=== PATIENT | female | born 1980 | race African-American/Black ===

== ENCOUNTER 2020-06-29 18:20 | Emergency (ER) | payer SELFPAY ==
[~2020-06-29] VITALS: Ht 162.6 cm; Wt 98.0 kg
[2020-06-29] MEDS ORDERED: AMLODIPINE 10MG TABLET PO ONE (19:00)
[2020-06-29] MEDS ORDERED: HYDRALAZINE 20MG/ML VIAL IV ONE (19:00)
[2020-06-29 19:57] LABS: BASOPHILS % 0.8 % (0.0-2.0); CHLORIDE 102 mEq/L (98-107); EOSINOPHILS % 4.1 % (0.0-5.0); HEMATOCRIT. 34.7 % (36.0-48.0); HEMOGLOBIN. 11.5 g/dL (12.0-16.0); LYMPHOCYTES % 20.1 % (20.0-50.0); MEAN CORPUSCULAR HEMOGLOBIN 30.3 pg (28.0-32.0); MEAN CORPUSCULAR VOLUME 91.1 fL (81.0-99.0); MEAN PLATELET VOLUME 11.3 fl (7.4-10.4); MONOCYTES % 13.9 % (2.0-8.0); NEUTROPHILS % 61.1 % (40.0-76.0); PLATELET 185 x1000/uL (130-400); RED BLOOD CELL COUNT 3.81 mill/uL (4.2-5.4)
[2020-06-29 20:02] LABS: PROTHROMBIN TIME 10.4 sec (9.6-11.0)
[2020-06-29 20:06] LABS: CLARITY URINE CLEAR (CLEAR); COLOR URINE YELLOW (YELLOW); KETONES URINE NEGATIVE (NEGATIVE); LEUKOCYTE ESTERASE URINE 1+ (NEGATIVE); NITRITE URINE NEGATIVE (NEGATIVE); OCCULT BLOOD URINE NEGATIVE (NEGATIVE); PH URINE 7.5 (4.5-8.0); PROTEIN URINE 1+ (NEGATIVE); SPECIFIC GRAVITY URINE 1.023 (1.005-1.030)
[2020-06-29] MEDS ORDERED: ONDANSETRON HCL 4MG/2ML INJ IV ONE (22:00)
[2020-06-29] MEDS ORDERED: CEFTRIAXONE 1 G PREMIX 50 ML IV ONE (22:00)
[2020-06-29] MEDS ORDERED: KETOROLAC 30MG/ML VIAL IV ONE (22:00)
[2020-06-29] MEDS ORDERED: HYDRALAZINE HCL 25MG TABLET PO ONE (22:00)
[2020-06-29] MEDS ORDERED: IOHEXOL-300 100 ML BOTTLE ONE (22:23)
[2020-06-29 22:42] VITALS: BP 178/112
== END 2020-06-29 22:44 | disposition home or self-care (01) ==
LOC: ER 18:20
DX: N39.0 Urinary tract infection, site not specified (principal); I10 Essential (primary) hypertension; J45.909 Unspecified asthma, uncomplicated; Z88.0 Allergy status to penicillin; Z88.1 Allergy status to other antibiotic agents; Z88.2 Allergy status to sulfonamides; Z88.5 Allergy status to narcotic agent
CPT/HCPCS: 36415; 71045; 74177; 80053; 81003; 81025; 83690; 83880; 84484; 85025; 85610; 93005; 96365; 96375; 99285; J0360; J0696; J1885; J2405; Q9967

== ENCOUNTER 2020-10-03 00:53 | Emergency (ER) | payer BC ==
[~2020-10-03] VITALS: Ht 162.6 cm; Wt 96.0 kg
[2020-10-03] MEDS ORDERED: AMLO10TA80 MT (01:10)
[2020-10-03] MEDS ORDERED: CLAR10 PO (01:11)
[2020-10-03] MEDS ORDERED: ACETAMINOPHEN 325MG TABLET PO ONE (01:45)
[2020-10-03 02:06] LABS: HEMATOCRIT. 34.9 % (36.0-48.0); HEMOGLOBIN. 11.4 g/dL (12.0-16.0); MEAN CORPUSCULAR HEMOGLOBIN 29.1 pg (28.0-32.0); MEAN CORPUSCULAR VOLUME 89.1 fL (81.0-99.0); MEAN PLATELET VOLUME 10.5 fl (7.4-10.4); PLATELET 158 x1000/uL (130-400); RED BLOOD CELL COUNT 3.91 mill/uL (4.2-5.4); RED CELL DISTRIBUTION WIDTH 13.9 % (11.6-14.6)
[2020-10-03 02:20] LABS: CHLORIDE 107 mEq/L (98-107)
[2020-10-03 02:35] LABS: HCG SCREEN NEGATIVE
[2020-10-03 02:44] LABS: CLARITY URINE CLEAR (CLEAR); COLOR URINE YELLOW (YELLOW); KETONES URINE NEGATIVE (NEGATIVE); LEUKOCYTE ESTERASE URINE TRACE (NEGATIVE); NITRITE URINE NEGATIVE (NEGATIVE); OCCULT BLOOD URINE 2+ (NEGATIVE); PH URINE 6.5 (4.5-8.0); PROTEIN URINE NEGATIVE (NEGATIVE)
[2020-10-03 03:26] LABS: PLATELET ESTIMATE NORMAL
[2020-10-03] MEDS ORDERED: KETOROLAC 15MG/ML VIAL IV ONE (03:45)
[2020-10-03 03:50] VITALS: BP 216/134
[2020-10-03] MEDS ORDERED: CIPDEX EACH EAR (04:22)
[2020-10-03] MEDS ORDERED: METR500T MT (04:22)
[2020-10-03] MEDS ORDERED: CIPR500S4 PO (04:22)
== END 2020-10-03 05:15 | disposition home or self-care (01) ==
LOC: ER 00:58
DX: K51.30 Ulcerative (chronic) rectosigmoiditis without complications (principal); D25.9 Leiomyoma of uterus, unspecified; D64.9 Anemia, unspecified; J45.909 Unspecified asthma, uncomplicated; H60.93 Unspecified otitis externa, bilateral; I10 Essential (primary) hypertension; Z79.899 Other long term (current) drug therapy; Z88.0 Allergy status to penicillin; Z88.5 Allergy status to narcotic agent; Z88.2 Allergy status to sulfonamides
CPT/HCPCS: 36415; 74176; 80053; 81003; 84703; 85025; 93005; 96374; 99285; J1885

== ENCOUNTER 2020-12-18 19:51 | Emergency (ER) | payer BC ==
[~2020-12-18] VITALS: Ht 162.6 cm; Wt 100.0 kg
[~2020-12-18 19:51] MED LIST: AMLO10TA80 MT; CIPDEX EACH EAR; CIPR500S4 PO; CLAR10 PO; METR500T MT; NAPR-681 MT; NORG1TAB75 MT
[2020-12-18] MEDS ORDERED: MAGNESIUM/ALUMINUM HYDROXIDE/SIMETHICONE 30ML UDC PO STA (20:15)
[2020-12-18] MEDS ORDERED: ACETAMINOPHEN 325MG TABLET PO ONE (20:15)
[2020-12-18 20:34] LABS: BASOPHILS % 1.2 % (0.0-2.0); EOSINOPHILS % 2.5 % (0.0-5.0); HEMATOCRIT. 36.1 % (36.0-48.0); HEMOGLOBIN. 12.2 g/dL (12.0-16.0); LYMPHOCYTES % 12.3 % (20.0-50.0); MEAN CORPUSCULAR HEMOGLOBIN 30.1 pg (28.0-32.0); MEAN CORPUSCULAR VOLUME 89.2 fL (81.0-99.0); MEAN PLATELET VOLUME 10.5 fl (7.4-10.4); MONOCYTES % 14.7 % (2.0-8.0); NEUTROPHILS % 69.3 % (40.0-76.0); PLATELET 171 x1000/uL (130-400); RED BLOOD CELL COUNT 4.05 mill/uL (4.2-5.4); RED CELL DISTRIBUTION WIDTH 13.7 % (11.6-14.6)
[2020-12-18 20:39] LABS: CLARITY URINE CLEAR (CLEAR); COLOR URINE YELLOW (YELLOW); KETONES URINE NEGATIVE (NEGATIVE); LEUKOCYTE ESTERASE URINE TRACE (NEGATIVE); NITRITE URINE NEGATIVE (NEGATIVE); OCCULT BLOOD URINE TRACE (NEGATIVE); PROTEIN URINE NEGATIVE (NEGATIVE); SPECIFIC GRAVITY URINE 1.019 (1.005-1.030); UROBILINOGEN URINE 0.2 E.U./dL (0.2-1.0)
[2020-12-18 20:42] LABS: CHLORIDE 104 mEq/L (98-107)
[2020-12-18 20:45] LABS: PROTHROMBIN TIME 11.2 sec (9.6-11.0)
[2020-12-18 21:01] LABS: HCG SCREEN NEGATIVE
[2020-12-18] MEDS ORDERED: FAMO-135 PO (21:48)
[2020-12-18] MEDS ORDERED: AMLO10TA80 PO (21:48)
[2020-12-18] MEDS ORDERED: AMLODIPINE 10MG TABLET PO ONE (22:00)
[2020-12-18 23:45] VITALS: BP 154/67
== END 2020-12-18 23:45 | disposition home or self-care (01) ==
LOC: ER 20:22
DX: R10.13 Epigastric pain (principal); I10 Essential (primary) hypertension
CPT/HCPCS: 36415; 74176; 76830; 76856; 80053; 81003; 81025; 84703; 85025; 93005; 99285

== ENCOUNTER 2020-12-27 22:10 | Emergency (ER) | payer BC ==
[~2020-12-27] VITALS: Ht 162.6 cm; Wt 99.0 kg
[~2020-12-27 22:10] MED LIST changes: +AMLO10TA80 PO; +FAMO-135 PO
[2020-12-27] MEDS ORDERED: AMLODIPINE 10MG TABLET PO ONE (23:15)
[2020-12-28 00:18] VITALS: BP 174/91
== END 2020-12-28 00:20 | disposition home or self-care (01) ==
LOC: ER 22:31
DX: R10.12 Left upper quadrant pain (principal); I10 Essential (primary) hypertension; Y08.89XA Assault by other specified means, initial encounter; Y93.89 Activity, other specified; Y92.89 Other specified places as the place of occurrence of the external cause; Y99.8 Other external cause status; Z79.899 Other long term (current) drug therapy; Z88.0 Allergy status to penicillin; Z88.5 Allergy status to narcotic agent
CPT/HCPCS: 76700; 99284

== ENCOUNTER 2021-07-21 14:00 | Emergency (ER) | payer BC ==
[~2021-07-21] VITALS: Ht 162.6 cm; Wt 100.0 kg
[2021-07-21 14:14] VITALS: BP 160/98
[2021-07-21] MEDS ORDERED: KETOROLAC 60MG/2ML VIAL IM ONE (14:30)
[2021-07-21] MEDS ORDERED: IBUP-2029 MT (15:02)
== END 2021-07-21 15:16 | disposition home or self-care (01) ==
LOC: ER 14:41
DX: S63.613A Unspecified sprain of left middle finger, initial encounter (principal); I10 Essential (primary) hypertension; Z79.899 Other long term (current) drug therapy; Z88.0 Allergy status to penicillin; Z88.5 Allergy status to narcotic agent; Z88.6 Allergy status to analgesic agent; Z88.8 Allergy status to other drugs, medicaments and biological substances; X58.XXXA Exposure to other specified factors, initial encounter; Y93.89 Activity, other specified; Y92.89 Other specified places as the place of occurrence of the external cause; Y99.8 Other external cause status
CPT/HCPCS: 29130; 73140; 81025; 99283; J1885

== ENCOUNTER 2021-08-26 22:27 | Emergency (ER) | payer BC ==
[~2021-08-26] VITALS: Ht 162.6 cm; Wt 98.0 kg
[~2021-08-26 22:27] MED LIST changes: +IBUP-2029 MT
[2021-08-26] MEDS ORDERED: TETANUS, DIPHTHERIA, PERTUSSIS VAC/PF 0.5ML (>10YR OLD) IM ONE (23:00)
[2021-08-26] MEDS ORDERED: BACITRACIN ZINC OINT UDPKT TOP ONE (23:00)
[2021-08-26] MEDS ORDERED: IBUPROFEN 600MG TABLET PO ONE (23:00)
[2021-08-26] MEDS ORDERED: BO1 TP (23:03)
[2021-08-26] MEDS ORDERED: NAPR-681 PO (23:03)
[2021-08-26 23:05] VITALS: BP 166/102
== END 2021-08-26 23:10 | disposition home or self-care (01) ==
LOC: ER 22:27
DX: T30.0 Burn of unspecified body region, unspecified degree (principal); T79.9XXA Unspecified early complication of trauma, initial encounter; I10 Essential (primary) hypertension; J45.909 Unspecified asthma, uncomplicated; Z98.890 Other specified postprocedural states; Z88.0 Allergy status to penicillin; Z88.1 Allergy status to other antibiotic agents; Z88.5 Allergy status to narcotic agent; Z88.2 Allergy status to sulfonamides; Z79.899 Other long term (current) drug therapy; X08.8XXA Exposure to other specified smoke, fire and flames, initial encounter; Y93.89 Activity, other specified; Y92.89 Other specified places as the place of occurrence of the external cause; Y99.8 Other external cause status
CPT/HCPCS: 16020; 90471; 90715; 99283

== ENCOUNTER 2021-08-28 10:14 | Emergency (ER) | payer BC ==
[~2021-08-28] VITALS: Ht 162.6 cm; Wt 118.0 kg
[~2021-08-28 10:14] MED LIST changes: +BO1 TP; +NAPR-681 PO
[2021-08-28] MEDS ORDERED: AMLODIPINE 10MG TABLET PO ONE (10:30)
[2021-08-28] MEDS ORDERED: BACITRACIN ZINC OINT UDPKT TOP ONE (10:30)
[2021-08-28 11:43] LABS: CHLORIDE 103 mEq/L (98-107)
[2021-08-28 12:02] VITALS: BP 171/113
[2021-08-28] MEDS ORDERED: AMLO10TA80 MT (12:21)
[2021-08-28 12:43] LABS: CLARITY URINE CLEAR (CLEAR); COLOR URINE YELLOW (YELLOW); KETONES URINE NEGATIVE (NEGATIVE); LEUKOCYTE ESTERASE URINE NEGATIVE (NEGATIVE); NITRITE URINE NEGATIVE (NEGATIVE); OCCULT BLOOD URINE NEGATIVE (NEGATIVE); PH URINE 5.5 (4.5-8.0); PROTEIN URINE 1+ (NEGATIVE); SPECIFIC GRAVITY URINE 1.021 (1.005-1.030); UROBILINOGEN URINE 0.2 E.U./dL (0.2-1.0)
== END 2021-08-28 12:42 | disposition home or self-care (01) ==
LOC: ER 10:14
DX: T23.221A Burn of second degree of single right finger (nail) except thumb, initial encounter (principal); T31.0 Burns involving less than 10% of body surface; X19.XXXA Contact with other heat and hot substances, initial encounter; Y93.89 Activity, other specified; Y92.89 Other specified places as the place of occurrence of the external cause; Y99.8 Other external cause status; J45.909 Unspecified asthma, uncomplicated; I10 Essential (primary) hypertension; Z79.899 Other long term (current) drug therapy; Z88.0 Allergy status to penicillin
CPT/HCPCS: 16020; 36415; 80048; 81003; 99283

== ENCOUNTER 2021-08-31 13:13 | Emergency (ER) | payer BC ==
[~2021-08-31] VITALS: Ht 162.6 cm; Wt 98.0 kg
[2021-08-31] MEDS ORDERED: AMLODIPINE 10MG TABLET PO ONE (13:30)
[2021-08-31 13:58] LABS: HEMATOCRIT. 35.4 % (36.0-48.0); HEMOGLOBIN. 11.8 g/dL (12.0-16.0); MEAN CORPUSCULAR HEMOGLOBIN 29.9 pg (28.0-32.0); MEAN CORPUSCULAR VOLUME 89.9 fL (81.0-99.0); MEAN PLATELET VOLUME 11.2 fl (7.4-10.4); PLATELET 202 x1000/uL (130-400); RED BLOOD CELL COUNT 3.93 mill/uL (4.2-5.4); RED CELL DISTRIBUTION WIDTH 13.8 % (11.6-14.6)
[2021-08-31 14:06] LABS: CHLORIDE 102 mEq/L (98-107)
[2021-08-31 14:15] LABS: CLARITY URINE CLEAR (CLEAR); COLOR URINE YELLOW (YELLOW); KETONES URINE NEGATIVE (NEGATIVE); LEUKOCYTE ESTERASE URINE NEGATIVE (NEGATIVE); NITRITE URINE NEGATIVE (NEGATIVE); OCCULT BLOOD URINE TRACE (NEGATIVE); PROTEIN URINE 2+ (NEGATIVE); SPECIFIC GRAVITY URINE 1.021 (1.005-1.030); UROBILINOGEN URINE 0.2 E.U./dL (0.2-1.0)
[2021-08-31] MEDS ORDERED: KETOROLAC 30MG/ML VIAL IV ONE (14:45)
[2021-08-31] MEDS ORDERED: T3 PO (15:04)
[2021-08-31 15:38] LABS: PLATELET ESTIMATE NORMAL
[2021-08-31 16:15] VITALS: BP 109/116
== END 2021-08-31 16:35 | disposition home or self-care (01) ==
LOC: ER 13:13
DX: R30.0 Dysuria (principal); R10.9 Unspecified abdominal pain; M54.89 Other dorsalgia; I10 Essential (primary) hypertension; D64.9 Anemia, unspecified; K76.0 Fatty (change of) liver, not elsewhere classified; J45.909 Unspecified asthma, uncomplicated; Z88.0 Allergy status to penicillin; Z88.1 Allergy status to other antibiotic agents; Z88.5 Allergy status to narcotic agent; Z88.2 Allergy status to sulfonamides
CPT/HCPCS: 36415; 76700; 80053; 81003; 81025; 85025; 96374; 99284; J1885; Z7610

== ENCOUNTER → 2021-11-21 | Outpatient (CLI) | payer BC ==
[~2021-11-21] MED LIST changes: +T3 PO
[2021-11-21 13:47] LABS: CLARITY URINE CLEAR (CLEAR); COLOR URINE YELLOW (YELLOW); KETONES URINE TRACE (NEGATIVE); LEUKOCYTE ESTERASE URINE TRACE (NEGATIVE); NITRITE URINE NEGATIVE (NEGATIVE); OCCULT BLOOD URINE NEGATIVE (NEGATIVE); PH URINE 6.5 (4.5-8.0); PROTEIN URINE 2+ (NEGATIVE); SPECIFIC GRAVITY URINE 1.025 (1.005-1.030)
[2021-11-21 14:29] LABS: CHLORIDE 105 mEq/L (98-107)
[2021-11-21 14:34] LABS: TOTAL IRON BINDING CAPACITY 296 ug/dL (250-450)
[2021-11-21 14:38] LABS: T4 FREE 1.12 ng/dL (0.76-1.46)
[2021-11-23 08:08] LABS: CANCER ANTIGEN 125 35.4 U/mL (0.0-38.1); VITAMIN D 25-OH 11.5 ng/mL (30.0-100.0)
== END | disposition home or self-care (01) ==
LOC: LAB 12:37
PROVIDERS: ATTEND Family Medicine Adult Medicine
DX: I10 Essential (primary) hypertension (principal); E83.51 Hypocalcemia; R39.15 Urgency of urination; R53.83 Other fatigue; R10.30 Lower abdominal pain, unspecified; R35.0 Frequency of micturition; R07.89 Other chest pain; R10.84 Generalized abdominal pain; R80.9 Proteinuria, unspecified
CPT/HCPCS: 36415; 80048; 81003; 82306; 83540; 83550; 84439; 84443; 86304

== ENCOUNTER → 2021-11-23 | Outpatient (CLI) | payer BC | END | disposition home or self-care (01) | LOC: US 10:53 | PROVIDERS: ATTEND Family Medicine Adult Medicine | DX: D25.9 Leiomyoma of uterus, unspecified (principal); N83.201 Unspecified ovarian cyst, right side; N83.202 Unspecified ovarian cyst, left side; R93.89 Abnormal findings on diagnostic imaging of other specified body structures | CPT/HCPCS: 76830; 76856 ==

== ENCOUNTER → 2021-12-08 | Outpatient (CLI) | payer BC ==
[2021-12-08 15:35] LABS: BASOPHILS % 0.6 % (0.0-2.0); EOSINOPHILS % 2.6 % (0.0-5.0); HEMATOCRIT. 32.6 % (36.0-48.0); LYMPHOCYTES % 18.8 % (20.0-50.0); MEAN PLATELET VOLUME 9.6 fl (7.4-10.4); MONOCYTES % 13.7 % (2.0-8.0); NEUTROPHILS % 64.3 % (40.0-76.0); PLATELET 231 x1000/uL (130-400); RED BLOOD CELL COUNT 3.67 mill/uL (4.2-5.4); RED CELL DISTRIBUTION WIDTH 14.6 % (11.6-14.6)
[2021-12-08 15:43] LABS: CHLORIDE 103 mEq/L (98-107)
[2021-12-08 15:58] LABS: HDL CHOLESTEROL 40 mg/dL (40-59); LDL CHOLESTEROL 98 mg/dL (5-100); T4 FREE 1.16 ng/dL (0.76-1.46)
== END | disposition home or self-care (01) ==
LOC: LAB 14:29
PROVIDERS: ATTEND Specialist
DX: E78.2 Mixed hyperlipidemia (principal); E11.9 Type 2 diabetes mellitus without complications; E55.9 Vitamin D deficiency, unspecified; D64.9 Anemia, unspecified
CPT/HCPCS: 36415; 80053; 80061; 82306; 83036; 84439; 84443; 84481; 85025

== ENCOUNTER → 2022-01-10 | Outpatient (CLI) | payer BC ==
[~2022-01-10] MED LIST changes: +NITROGLYCERIN SPRAY/4.9GM CAN TL NR
== END | disposition home or self-care (01) ==
LOC: CT 10:34
PROVIDERS: ATTEND Specialist
DX: R07.9 Chest pain, unspecified (principal); I25.10 Atherosclerotic heart disease of native coronary artery without angina pectoris
CPT/HCPCS: 75571; Z7610

== ENCOUNTER → 2022-02-01 | Day surgery (SDC) | payer BC ==
[~2022-02-01] VITALS: Ht 162.6 cm; Wt 98.0 kg
[~2022-02-01] MED LIST changes: +ALBU18HF2 IH; +ASCO500C18 PO; +CHOL500051 PO; +CLINDAMYCIN 900 MG PREMIX 50 ML IV ONE; +CLON0.2T PO; +DEXAMETHASONE 4MG/ML 1ML VIAL ONE; +FENTANYL CITRATE/PF 50MCG/ML 2ML VIAL ONE; +LABETALOL 5MG/ML SYR 20 MG/4 ML SYRINGE IV PRN; +LACTATED RINGERS 1,000 ML IV SCH; +MEPERIDINE HCL/PF 25MG/ML CPJ IV PRN; +MIDAZOLAM HCL 2 MG/2 ML VIAL ONE; -NITROGLYCERIN SPRAY/4.9GM CAN TL NR; +ONDANSETRON HCL 4MG/2ML INJ IV PRN; +ONDANSETRON HCL 4MG/2ML INJ ONE; +PROPOFOL 200MG/20ML VIAL IV ONE; +VASOPRESSIN 20 UNIT/ML 1ML ONE
[2022-02-01 10:16] LABS: BASOPHILS % 0.6 % (0.0-2.0); EOSINOPHILS % 2.9 % (0.0-5.0); HEMATOCRIT. 32.1 % (36.0-48.0); HEMOGLOBIN. 10.6 g/dL (12.0-16.0); LYMPHOCYTES % 12.4 % (20.0-50.0); MEAN CORPUSCULAR HEMOGLOBIN 29.1 pg (28.0-32.0); MEAN CORPUSCULAR VOLUME 88.3 fL (81.0-99.0); MEAN PLATELET VOLUME 9.1 fl (7.4-10.4); MONOCYTES % 10.9 % (2.0-8.0); NEUTROPHILS % 73.2 % (40.0-76.0); PLATELET 282 x1000/uL (130-400); RED BLOOD CELL COUNT 3.64 mill/uL (4.2-5.4); RED CELL DISTRIBUTION WIDTH 14.7 % (11.6-14.6)
[2022-02-01 10:29] LABS: CHLORIDE 102 mEq/L (98-107)
[2022-02-01 10:37] LABS: PARTIAL THROMBOPLASTIN TIME 29.6 sec (23.4-31.0); PROTHROMBIN TIME 10.7 sec (9.6-11.0)
[2022-02-01 10:48] LABS: UCG SCREEN NEGATIVE
[2022-02-01] MEDS: HYDROMORPHONE HCL/PF 2MG/ML CPJ IV PRN ×2 (13:08→13:19)
[2022-02-01 13:19] VITALS: BP 134/84
== END | disposition home or self-care (01) ==
LOC: OR 09:47
PROVIDERS: ATTEND Obstetrics & Gynecology Obstetrics
DX: D25.0 Submucous leiomyoma of uterus (principal); N84.0 Polyp of corpus uteri; N92.1 Excessive and frequent menstruation with irregular cycle; I10 Essential (primary) hypertension; J45.909 Unspecified asthma, uncomplicated; D64.9 Anemia, unspecified; Z79.899 Other long term (current) drug therapy; Z98.890 Other specified postprocedural states; Z20.822 Contact with and (suspected) exposure to COVID-19
CPT/HCPCS: 36415; 58561; 80048; 81025; 85025; 85610; 85730; 87426; 88305; 93005; C9803; J1100; J1170; J2250; J2405; J2704; J3010; J3490; J7120

== ENCOUNTER 2022-02-24 15:39 | Emergency (ER) | payer BC ==
[~2022-02-24] VITALS: Ht 162.6 cm; Wt 91.0 kg
[~2022-02-24 15:39] MED LIST changes: -AMLO10TA80 PO; -BO1 TP; -CIPDEX EACH EAR; -CIPR500S4 PO; -CLINDAMYCIN 900 MG PREMIX 50 ML IV ONE; -DEXAMETHASONE 4MG/ML 1ML VIAL ONE; -FENTANYL CITRATE/PF 50MCG/ML 2ML VIAL ONE; -LABETALOL 5MG/ML SYR 20 MG/4 ML SYRINGE IV PRN; -LACTATED RINGERS 1,000 ML IV SCH; -MEPERIDINE HCL/PF 25MG/ML CPJ IV PRN; -METR500T MT; -MIDAZOLAM HCL 2 MG/2 ML VIAL ONE; -NAPR-681 MT; -NAPR-681 PO; -NORG1TAB75 MT; -ONDANSETRON HCL 4MG/2ML INJ IV PRN; -ONDANSETRON HCL 4MG/2ML INJ ONE; -PROPOFOL 200MG/20ML VIAL IV ONE; -T3 PO; -VASOPRESSIN 20 UNIT/ML 1ML ONE
[2022-02-24] MEDS ORDERED: ONDANSETRON HCL 4MG/2ML INJ IV STA (16:15)
[2022-02-24] MEDS ORDERED: MORPHINE SULFATE 4 MG/ML CPJ (NOT FOR IM USE) IV STA (16:15)
[2022-02-24] MEDS ORDERED: SODIUM CHLORIDE 0.9% 1,000 ML IV ONE (16:15)
[2022-02-24 16:41] LABS: BASOPHILS % 0.4 % (0.0-2.0); EOSINOPHILS % 5.6 % (0.0-5.0); HEMATOCRIT. 34.1 % (36.0-48.0); HEMOGLOBIN. 11.1 g/dL (12.0-16.0); LYMPHOCYTES % 25.2 % (20.0-50.0); MEAN CORPUSCULAR HEMOGLOBIN 28.8 pg (28.0-32.0); MEAN CORPUSCULAR VOLUME 88.9 fL (81.0-99.0); MEAN PLATELET VOLUME 9.6 fl (7.4-10.4); MONOCYTES % 14.1 % (2.0-8.0); NEUTROPHILS % 54.7 % (40.0-76.0); PLATELET 316 x1000/uL (130-400); RED BLOOD CELL COUNT 3.83 mill/uL (4.2-5.4); RED CELL DISTRIBUTION WIDTH 14.8 % (11.6-14.6)
[2022-02-24 16:43] LABS: CLARITY URINE CLEAR (CLEAR); COLOR URINE YELLOW (YELLOW); KETONES URINE NEGATIVE (NEGATIVE); LEUKOCYTE ESTERASE URINE 3+ (NEGATIVE); NITRITE URINE NEGATIVE (NEGATIVE); OCCULT BLOOD URINE 3+ (NEGATIVE); PROTEIN URINE TRACE (NEGATIVE); SPECIFIC GRAVITY URINE 1.014 (1.005-1.030); UROBILINOGEN URINE 0.2 E.U./dL (0.2-1.0)
[2022-02-24 16:47] LABS: PROTHROMBIN TIME 10.9 sec (9.6-11.0)
[2022-02-24 16:56] LABS: HCG SCREEN NEGATIVE
[2022-02-24 17:00] LABS: CHLORIDE 101 mEq/L (98-107)
[2022-02-24] MEDS ORDERED: HYDROCODONE/ACETAMINOPHEN 5/325MG TABLET PO ONE (19:15)
[2022-02-24] MEDS ORDERED: T3 PO (20:52)
[2022-02-24] MEDS ORDERED: IBUP-2029 MT (20:52)
[2022-02-24 21:18] VITALS: BP 149/85
== END 2022-02-24 21:34 | disposition home or self-care (01) ==
LOC: ER 15:39
DX: M54.50 Low back pain, unspecified (principal); J45.909 Unspecified asthma, uncomplicated; I10 Essential (primary) hypertension; Z88.0 Allergy status to penicillin; Z91.010 Allergy to peanuts; Z88.2 Allergy status to sulfonamides; Z88.8 Allergy status to other drugs, medicaments and biological substances; Z91.018 Allergy to other foods; Z98.890 Other specified postprocedural states; Z79.899 Other long term (current) drug therapy
CPT/HCPCS: 36415; 74176; 80053; 81003; 83690; 84703; 85025; 85610; 96361; 96374; 96375; 99284; J2270; J2405; J7030

== ENCOUNTER → 2022-03-17 | Outpatient (CLI) | payer BC ==
[~2022-03-17] MED LIST changes: +T3 PO
== END | disposition home or self-care (01) ==
LOC: MRI 10:32
PROVIDERS: ATTEND Obstetrics & Gynecology Obstetrics
DX: M41.86 Other forms of scoliosis, lumbar region (principal); M51.17 Intervertebral disc disorders with radiculopathy, lumbosacral region; R10.2 Pelvic and perineal pain; M79.659 Pain in unspecified thigh
CPT/HCPCS: 72148

== ENCOUNTER 2022-05-05 22:11 | Emergency (ER) | payer BC ==
[~2022-05-05] VITALS: Ht 162.6 cm; Wt 98.0 kg
[2022-05-05] MEDS ORDERED: MORPHINE SULFATE 4 MG/ML CPJ (NOT FOR IM USE) IV NR (23:55)
[2022-05-05] MEDS ORDERED: ONDANSETRON HCL 4MG/2ML INJ IV NR (23:55)
[2022-05-06] MEDS ORDERED: SODIUM CHLORIDE 0.9% 1,000 ML IV NR
[2022-05-06 00:35] LABS: BASOPHILS % 0.6 % (0.0-2.0); EOSINOPHILS % 3.3 % (0.0-5.0); HEMATOCRIT. 34.7 % (36.0-48.0); HEMOGLOBIN. 11.8 g/dL (12.0-16.0); LYMPHOCYTES % 14.3 % (20.0-50.0); MEAN CORPUSCULAR HEMOGLOBIN 30.6 pg (28.0-32.0); MEAN CORPUSCULAR VOLUME 89.7 fL (81.0-99.0); MEAN PLATELET VOLUME 10.2 fl (7.4-10.4); MONOCYTES % 10.7 % (2.0-8.0); NEUTROPHILS % 71.1 % (40.0-76.0); PLATELET 218 x1000/uL (130-400); RED BLOOD CELL COUNT 3.86 mill/uL (4.2-5.4); RED CELL DISTRIBUTION WIDTH 14.6 % (11.6-14.6)
[2022-05-06 00:42] LABS: CHLORIDE 101 mEq/L (98-107)
[2022-05-06 00:46] LABS: HCG SCREEN NEGATIVE
[2022-05-06 01:10] LABS: CLARITY URINE CLOUDY (CLEAR); COLOR URINE YELLOW (YELLOW); KETONES URINE TRACE (NEGATIVE); LEUKOCYTE ESTERASE URINE 1+ (NEGATIVE); NITRITE URINE NEGATIVE (NEGATIVE); OCCULT BLOOD URINE 3+ (NEGATIVE); PROTEIN URINE 2+ (NEGATIVE); SPECIFIC GRAVITY URINE 1.026 (1.005-1.030)
[2022-05-06 05:30] VITALS: BP 156/95
[2022-05-06] MEDS ORDERED: LEVO750T46 MT (05:53)
[2022-05-06] MEDS ORDERED: HYDR-4001 MT (05:54)
== END 2022-05-06 06:20 | disposition home or self-care (01) ==
LOC: ER 22:11
DX: D25.9 Leiomyoma of uterus, unspecified (principal); N83.202 Unspecified ovarian cyst, left side; I10 Essential (primary) hypertension; N95.1 Menopausal and female climacteric states; Z88.0 Allergy status to penicillin; Z88.2 Allergy status to sulfonamides; Z91.09 Other allergy status, other than to drugs and biological substances; Z88.1 Allergy status to other antibiotic agents; Z91.018 Allergy to other foods
CPT/HCPCS: 36415; 76830; 76856; 80053; 81003; 81025; 83605; 83690; 84703; 85025; 86850; 86900; 86901; 96361; 96374; 96375; 99285; J2270; J2405

== ENCOUNTER 2022-06-23 23:30 | Inpatient (IN) | payer BC ==
[~2022-06-23] VITALS: Ht 162.6 cm; Wt 89.8 kg
[~2022-06-23 23:30] MED LIST changes: -CLON0.2T PO; +HYDR-4001 MT
[2022-06-24] VITALS: BP 106/60
[2022-06-24] MEDS: HYDROMORPHONE HCL/PF 2MG/ML CPJ IV PRN ×4 (02:06→21:22)
[2022-06-24 04:40] VITALS: BP 106/60
[2022-06-24 08:00] VITALS: BP 110/62
[2022-06-24] MEDS ORDERED: NALOXONE HCL 0.4MG/ML VIAL IV PRN (09:30)
[2022-06-24] MEDS ORDERED: DIATR MEGLU/DIATRIZOATE SOLN 120ML ONE (09:38)
[2022-06-24 12:00] VITALS: BP 101/57
[2022-06-24] MEDS: FUROSEMIDE 40MG/4ML VIAL IVP SCH (15:19)
[2022-06-24 16:00] VITALS: BP 114/66
[2022-06-24 18:22] LABS: HEMOGLOBIN. 7.7 g/dL (12.0-16.0); MEAN PLATELET VOLUME 8.9 fl (7.4-10.4)
[2022-06-24 18:24] LABS: HEMATOCRIT. 23.7 % (36.0-48.0); MEAN CORPUSCULAR VOLUME 86.4 fL (81.0-99.0); PLATELET 325 x1000/uL (130-400); RED BLOOD CELL COUNT 2.74 mill/uL (4.2-5.4); RED CELL DISTRIBUTION WIDTH 17.8 % (11.6-14.6)
[2022-06-24 18:28] LABS: CHLORIDE 97 mEq/L (98-107)
[2022-06-24 20:00] VITALS: BP 122/72
[2022-06-24] MEDS: DIPHENHYDRAMINE 50MG/ML VIAL IV SCH (22:11)
[2022-06-24 23:11] LABS: NUCLEATED RED BLOOD CELLS 1 /100 WBC; PLATELET ESTIMATE NORMAL
[2022-06-25] VITALS: BP 102/56
[2022-06-25] MEDS: HYDROMORPHONE HCL/PF 2MG/ML CPJ IV PRN ×4 (03:28→21:48)
[2022-06-25 04:00] VITALS: BP 110/58
[2022-06-25] MEDS: DIPHENHYDRAMINE 50MG/ML VIAL IV SCH ×3 (06:10→22:25)
[2022-06-25 07:47] LABS: HEMATOCRIT. 22.4 % (36.0-48.0); HEMOGLOBIN. 7.2 g/dL (12.0-16.0); MEAN CORPUSCULAR HEMOGLOBIN 28.4 pg (28.0-32.0); MEAN CORPUSCULAR VOLUME 87.8 fL (81.0-99.0); MEAN PLATELET VOLUME 8.5 fl (7.4-10.4); PLATELET 295 x1000/uL (130-400); RED BLOOD CELL COUNT 2.55 mill/uL (4.2-5.4); RED CELL DISTRIBUTION WIDTH 17.7 % (11.6-14.6)
[2022-06-25 08:00] VITALS: BP 112/66
[2022-06-25 08:46] LABS: CHLORIDE 95 mEq/L (98-107)
[2022-06-25] MEDS: FUROSEMIDE 40MG/4ML VIAL IVP SCH (09:32)
[2022-06-25 12:00] VITALS: BP 116/74
[2022-06-25 12:39] LABS: PLATELET ESTIMATE NORMAL
[2022-06-25 16:00] VITALS: BP 122/72
[2022-06-25 20:00] VITALS: BP 117/71
[2022-06-26] MEDS: HYDROMORPHONE HCL/PF 2MG/ML CPJ IV PRN ×4 (03:46→22:28)
[2022-06-26] MEDS: DIPHENHYDRAMINE 50MG/ML VIAL IV SCH ×3 (06:19→23:03)
[2022-06-26 08:00] VITALS: BP 105/54
[2022-06-26] MEDS: FUROSEMIDE 40MG/4ML VIAL IVP SCH (09:50)
[2022-06-26 12:29] VITALS: BP 113/69
[2022-06-26 20:00] VITALS: BP 132/71
[2022-06-27] VITALS: BP 107/56
[2022-06-27] MEDS: HYDROMORPHONE HCL/PF 2MG/ML CPJ IV PRN ×4 (04:32→22:43)
[2022-06-27] MEDS: DIPHENHYDRAMINE 50MG/ML VIAL IV SCH ×3 (05:54→21:07)
[2022-06-27 07:00] LABS: HEMATOCRIT. 22.2 % (36.0-48.0); HEMOGLOBIN. 7.4 g/dL (12.0-16.0); MEAN CORPUSCULAR HEMOGLOBIN 28.8 pg (28.0-32.0); MEAN CORPUSCULAR VOLUME 86.7 fL (81.0-99.0); MEAN PLATELET VOLUME 8.5 fl (7.4-10.4); PLATELET 288 x1000/uL (130-400); RED BLOOD CELL COUNT 2.56 mill/uL (4.2-5.4); RED CELL DISTRIBUTION WIDTH 17.4 % (11.6-14.6)
[2022-06-27 07:55] VITALS: BP 117/71
[2022-06-27 08:45] LABS: CHLORIDE 97 mEq/L (98-107)
[2022-06-27] MEDS ORDERED: POTASSIUM CHLORIDE 20MEQ TABLET SR PO NR (09:00)
[2022-06-27 09:04] LABS: PHOSPHORUS 3.6 mg/dL (2.5-4.9)
[2022-06-27] MEDS ORDERED: ONDANSETRON HCL 4MG/2ML INJ IV PRN (09:15)
[2022-06-27] MEDS: FUROSEMIDE 40MG/4ML VIAL IVP SCH ×2 (09:59→16:40)
[2022-06-27 11:32] VITALS: BP 103/62
[2022-06-27] MEDS ORDERED: MAGNESIUM 2 G PREMIX 50 ML IV NR (12:30)
[2022-06-27 16:05] VITALS: BP 112/63
[2022-06-27 20:00] VITALS: BP 106/56
[2022-06-27] MEDS ORDERED: TEMAZEPAM 15MG CAPSULE PO PRN (21:00)
[2022-06-27 21:14] LABS: PLATELET ESTIMATE NORMAL
[2022-06-28 04:00] VITALS: BP 105/57
[2022-06-28] MEDS: HYDROMORPHONE HCL/PF 2MG/ML CPJ IV PRN ×4 (04:58→23:05)
[2022-06-28] MEDS: FUROSEMIDE 40MG/4ML VIAL IVP SCH ×2 (06:48→17:06)
[2022-06-28] MEDS: DIPHENHYDRAMINE 50MG/ML VIAL IV SCH ×3 (06:48→21:57)
[2022-06-28 08:00] VITALS: BP 111/61
[2022-06-28 08:24] LABS: HEMATOCRIT. 23.1 % (36.0-48.0); HEMOGLOBIN. 7.7 g/dL (12.0-16.0); MEAN CORPUSCULAR HEMOGLOBIN 29.5 pg (28.0-32.0); MEAN CORPUSCULAR VOLUME 88.3 fL (81.0-99.0); MEAN PLATELET VOLUME 8.7 fl (7.4-10.4); PLATELET 283 x1000/uL (130-400); RED BLOOD CELL COUNT 2.61 mill/uL (4.2-5.4); RED CELL DISTRIBUTION WIDTH 17.4 % (11.6-14.6)
[2022-06-28 08:43] LABS: CHLORIDE 95 mEq/L (98-107)
[2022-06-28] MEDS ORDERED: POTASSIUM CHLORIDE 20MEQ TABLET SR PO NR ×2 (09:00→12:00)
[2022-06-28] MEDS ORDERED: MAGNESIUM 4 G PREMIX 100 ML IV NR (11:00)
[2022-06-28 12:00] VITALS: BP 116/71
[2022-06-28 16:00] VITALS: BP 117/63
[2022-06-28 20:00] VITALS: BP 104/57
[2022-06-28 21:25] LABS: PLATELET ESTIMATE NORMAL
[2022-06-29] VITALS (7 sets, daily range): BP systolic 100–124; BP diastolic 54–70
[2022-06-29] MEDS: HYDROMORPHONE HCL/PF 2MG/ML CPJ IV PRN ×3 (05:00→17:41)
[2022-06-29] MEDS: DIPHENHYDRAMINE 50MG/ML VIAL IV SCH ×3 (06:10→22:09)
[2022-06-29] MEDS: FUROSEMIDE 40MG/4ML VIAL IVP SCH ×2 (06:17→17:41)
[2022-06-29 06:29] LABS: BASOPHILS % 0.8 % (0.0-2.0); EOSINOPHILS % 2.8 % (0.0-5.0); HEMATOCRIT. 22.3 % (36.0-48.0); HEMOGLOBIN. 7.4 g/dL (12.0-16.0); LYMPHOCYTES % 12.1 % (20.0-50.0); MEAN CORPUSCULAR HEMOGLOBIN 29.5 pg (28.0-32.0); MEAN CORPUSCULAR VOLUME 88.8 fL (81.0-99.0); MEAN PLATELET VOLUME 9.2 fl (7.4-10.4); MONOCYTES % 10.6 % (2.0-8.0); NEUTROPHILS % 73.7 % (40.0-76.0); PLATELET 264 x1000/uL (130-400); RED BLOOD CELL COUNT 2.51 mill/uL (4.2-5.4); RED CELL DISTRIBUTION WIDTH 17.2 % (11.6-14.6)
[2022-06-29 07:02] LABS: CHLORIDE 96 mEq/L (98-107)
[2022-06-29] MEDS: ACETAMINOPHEN 325MG TABLET PO PRN ×2 (08:59→22:09)
[2022-06-29] MEDS ORDERED: POTASSIUM CHLORIDE 20MEQ TABLET SR PO SCH (09:15)
[2022-06-29 15:20] LABS: CLARITY URINE CLEAR (CLEAR); COLOR URINE YELLOW (YELLOW); KETONES URINE NEGATIVE (NEGATIVE); LEUKOCYTE ESTERASE URINE TRACE (NEGATIVE); NITRITE URINE NEGATIVE (NEGATIVE); OCCULT BLOOD URINE NEGATIVE (NEGATIVE); PROTEIN URINE NEGATIVE (NEGATIVE); SPECIFIC GRAVITY URINE 1.005 (1.005-1.030)
[2022-06-29] MEDS ORDERED: NALOXONE HCL 0.4MG/ML VIAL IV PRN (17:45)
[2022-06-29] MEDS ORDERED: METRONIDAZOLE 500MG TABLET PO SCH (21:00)
[2022-06-30] MEDS ORDERED: LEVOFLOXACIN 500MG TABLET PO SCH (11:00)
== END 2022-06-29 23:06 | DRG 871 ==
LOC: 6EST 23:30
PROVIDERS: ADMIT Internal Medicine Nephrology; ATTEND Internal Medicine Nephrology
DX: A41.02 Sepsis due to Methicillin resistant Staphylococcus aureus (principal); J18.9 Pneumonia, unspecified organism; G62.81 Critical illness polyneuropathy; K56.7 Ileus, unspecified; N17.9 Acute kidney failure, unspecified; I47.1 Supraventricular tachycardia; E83.42 Hypomagnesemia; D25.9 Leiomyoma of uterus, unspecified; D50.0 Iron deficiency anemia secondary to blood loss (chronic); E16.2 Hypoglycemia, unspecified; F32.A Depression, unspecified; R26.89 Other abnormalities of gait and mobility; R53.81 Other malaise; I10 Essential (primary) hypertension; L30.9 Dermatitis, unspecified; Z88.9 Allergy status to unspecified drugs, medicaments and biological substances; Z91.010 Allergy to peanuts; Z88.0 Allergy status to penicillin; Z88.8 Allergy status to other drugs, medicaments and biological substances; Z91.018 Allergy to other foods; Z82.49 Family history of ischemic heart disease and other diseases of the circulatory system; Z84.1 Family history of disorders of kidney and ureter
CPT/HCPCS: 36415; 71045; 74176; 80048; 80053; 81003; 83735; 84100; 85025; 97116; 97162; 97166; 97530; A6261; J1170; J1200; J1940; J3475; Q9963

== ENCOUNTER 2022-06-29 23:10 | Inpatient (IN) | payer BC ==
[~2022-06-29] VITALS: Ht 162.6 cm; Wt 89.8 kg
[2022-06-29 23:20] VITALS: BP 114/57
[2022-06-30] MEDS ORDERED: TEMAZEPAM 15MG CAPSULE PO PRN (00:45)
[2022-06-30] MEDS ORDERED: ACETAMINOPHEN 325MG TABLET PO PRN (00:45)
[2022-06-30] MEDS ORDERED: NALOXONE HCL 0.4 MG/ML 1ML VIAL IV PRN (00:45)
[2022-06-30] MEDS: HYDROMORPHONE HCL/PF 2MG/ML CPJ IV PRN ×2 (01:42→08:33)
[2022-06-30] MEDS: DIPHENHYDRAMINE 50MG/ML VIAL IV SCH ×3 (06:49→21:10)
[2022-06-30] MEDS ORDERED: FUROSEMIDE 40MG/4ML VIAL IVP SCH (07:15)
[2022-06-30 07:27] LABS: HEMATOCRIT. 24.4 % (36.0-48.0); HEMOGLOBIN. 8.1 g/dL (12.0-16.0); MEAN CORPUSCULAR HEMOGLOBIN 29.3 pg (28.0-32.0); MEAN CORPUSCULAR VOLUME 88.5 fL (81.0-99.0); MEAN PLATELET VOLUME 8.5 fl (7.4-10.4); PLATELET 281 x1000/uL (130-400); RED BLOOD CELL COUNT 2.75 mill/uL (4.2-5.4); RED CELL DISTRIBUTION WIDTH 17.3 % (11.6-14.6)
[2022-06-30 08:00] VITALS: BP 128/74
[2022-06-30] MEDS: METRONIDAZOLE 500MG TABLET PO SCH ×2 (08:33→21:10)
[2022-06-30] MEDS: POTASSIUM CHLORIDE 20MEQ TABLET SR PO SCH (08:33)
[2022-06-30] MEDS: ONDANSETRON HCL 4MG/2ML INJ IV PRN (09:46)
[2022-06-30 09:55] LABS: CHLORIDE 98 mEq/L (98-107)
[2022-06-30] MEDS: LEVOFLOXACIN 500MG TABLET PO SCH (11:58)
[2022-06-30] MEDS ORDERED: MAGNESIUM 2 G PREMIX 50 ML IV NR (12:30)
[2022-06-30] MEDS: HYDROMORPHONE HCL 2MG TABLET PO PRN ×2 (14:01→21:23)
[2022-06-30 20:00] VITALS: BP 121/65
[2022-07-01] VITALS: BP 119/64
[2022-07-01] MEDS: OXYCODONE HCL 5MG TABLET PO PRN ×6 (00:28→21:58)
[2022-07-01] MEDS: ONDANSETRON HCL 4MG/2ML INJ IV PRN ×2 (01:05→22:03)
[2022-07-01] MEDS: DIPHENHYDRAMINE 50MG/ML VIAL IV SCH ×3 (05:33→21:58)
[2022-07-01 06:49] LABS: HEMATOCRIT. 22.4 % (36.0-48.0); HEMOGLOBIN. 7.3 g/dL (12.0-16.0); MEAN CORPUSCULAR HEMOGLOBIN 28.9 pg (28.0-32.0); MEAN CORPUSCULAR VOLUME 88.7 fL (81.0-99.0); MEAN PLATELET VOLUME 8.8 fl (7.4-10.4); PLATELET 301 x1000/uL (130-400); RED BLOOD CELL COUNT 2.52 mill/uL (4.2-5.4); RED CELL DISTRIBUTION WIDTH 17.9 % (11.6-14.6)
[2022-07-01 07:06] LABS: CHLORIDE 95 mEq/L (98-107)
[2022-07-01 07:10] LABS: PLATELET ESTIMATE NORMAL
[2022-07-01 08:00] VITALS: BP 101/54
[2022-07-01] MEDS: PANTOT AC/MIN OIL/PET HY-PHL OINT (AQUAPHOR) TOP SCH (08:47)
[2022-07-01] MEDS: FUROSEMIDE 40MG/4ML VIAL IVP SCH (08:47)
[2022-07-01] MEDS: METRONIDAZOLE 500MG TABLET PO SCH ×2 (08:47→21:57)
[2022-07-01] MEDS: POTASSIUM CHLORIDE 20MEQ TABLET SR PO SCH (09:00)
[2022-07-01] MEDS: LEVOFLOXACIN 500MG TABLET PO SCH (11:47)
[2022-07-01 16:24] VITALS: BP 127/68
[2022-07-01 20:00] VITALS: BP 127/76
[2022-07-02] MEDS: OXYCODONE HCL 5MG TABLET PO PRN ×5 (03:50→22:45)
[2022-07-02 04:19] LABS: PLATELET ESTIMATE NORMAL
[2022-07-02] MEDS: DIPHENHYDRAMINE 50MG/ML VIAL IV SCH ×3 (05:51→21:12)
[2022-07-02 08:00] VITALS: BP 112/55
[2022-07-02] MEDS: FUROSEMIDE 40MG/4ML VIAL IVP SCH (08:23)
[2022-07-02] MEDS: METRONIDAZOLE 500MG TABLET PO SCH ×2 (08:24→21:11)
[2022-07-02] MEDS: POTASSIUM CHLORIDE 20MEQ TABLET SR PO SCH (08:24)
[2022-07-02] MEDS: PANTOT AC/MIN OIL/PET HY-PHL OINT (AQUAPHOR) TOP SCH (08:24)
[2022-07-02] MEDS: LEVOFLOXACIN 500MG TABLET PO SCH (13:51)
[2022-07-02] MEDS ORDERED: [UNRECOGNIZED DRUG - REMARK] XX SCH (14:00)
[2022-07-02] MEDS: ERGOCALCIFEROL 50000UNITS CAPSULE PO SCH (17:53)
[2022-07-02 20:00] VITALS: BP 115/67
[2022-07-03] MEDS: OXYCODONE HCL 5MG TABLET PO PRN ×4 (03:14→21:43)
[2022-07-03] MEDS: DIPHENHYDRAMINE 50MG/ML VIAL IV SCH ×3 (05:38→21:47)
[2022-07-03 08:00] VITALS: BP 103/60
[2022-07-03] MEDS: POTASSIUM CHLORIDE 20MEQ TABLET SR PO SCH (09:00)
[2022-07-03] MEDS: PANTOT AC/MIN OIL/PET HY-PHL OINT (AQUAPHOR) TOP SCH (09:00)
[2022-07-03] MEDS: METRONIDAZOLE 500MG TABLET PO SCH (09:19)
[2022-07-03] MEDS: FUROSEMIDE 40MG/4ML VIAL IVP SCH (09:19)
[2022-07-03 09:24] LABS: HEMATOCRIT. 21.7 % (36.0-48.0); HEMOGLOBIN. 7.1 g/dL (12.0-16.0); MEAN CORPUSCULAR HEMOGLOBIN 29.5 pg (28.0-32.0); MEAN CORPUSCULAR VOLUME 90.4 fL (81.0-99.0); MEAN PLATELET VOLUME 8.4 fl (7.4-10.4); PLATELET 292 x1000/uL (130-400); RED CELL DISTRIBUTION WIDTH 18.3 % (11.6-14.6)
[2022-07-03 09:39] LABS: CHLORIDE 96 mEq/L (98-107)
[2022-07-03] MEDS ORDERED: MAGNESIUM 2 G PREMIX 50 ML IV NR (10:00)
[2022-07-03 10:02] LABS: TOTAL IRON BINDING CAPACITY 133 ug/dL (250-450)
[2022-07-03] MEDS: FERROUS SULFATE 325MG TABLET PO SCH ×2 (13:50→17:00)
[2022-07-03] MEDS: POLYETHYLENE GLYCOL 3350 (17GM) 1 DOSE PACK PO SCH (16:35)
[2022-07-03] MEDS: ONDANSETRON HCL 4MG/2ML INJ IV PRN (17:48)
[2022-07-03 20:00] VITALS: BP 120/79
[2022-07-03] MEDS ORDERED: DIPHENHYDRAMINE 50MG/ML VIAL ONE (21:28)
[2022-07-04] MEDS: OXYCODONE HCL 5MG TABLET PO PRN ×3 (03:57→21:00)
[2022-07-04] MEDS: DIPHENHYDRAMINE 50MG/ML VIAL IV SCH ×3 (06:27→21:04)
[2022-07-04 07:14] LABS: HEMATOCRIT. 22.4 % (36.0-48.0); HEMOGLOBIN. 7.4 g/dL (12.0-16.0); MEAN CORPUSCULAR HEMOGLOBIN 29.6 pg (28.0-32.0); MEAN CORPUSCULAR VOLUME 89.8 fL (81.0-99.0); MEAN PLATELET VOLUME 8.1 fl (7.4-10.4); PLATELET 312 x1000/uL (130-400); RED CELL DISTRIBUTION WIDTH 18.4 % (11.6-14.6)
[2022-07-04 08:00] VITALS: BP 119/68
[2022-07-04 08:37] LABS: CHLORIDE 97 mEq/L (98-107)
[2022-07-04] MEDS ORDERED: POTASSIUM CHLORIDE 20MEQ TABLET SR PO NR (09:15)
[2022-07-04] MEDS: POTASSIUM CHLORIDE 20MEQ TABLET SR PO SCH (09:16)
[2022-07-04] MEDS: POLYETHYLENE GLYCOL 3350 (17GM) 1 DOSE PACK PO SCH (09:16)
[2022-07-04] MEDS: PANTOT AC/MIN OIL/PET HY-PHL OINT (AQUAPHOR) TOP SCH (09:17)
[2022-07-04] MEDS: FERROUS SULFATE 325MG TABLET PO SCH ×3 (09:18→17:00)
[2022-07-04 10:33] LABS: PLATELET ESTIMATE NORMAL
[2022-07-04] MEDS ORDERED: MAGNESIUM GLUCONATE 500MG TABLET PO NR (11:00)
[2022-07-04] MEDS: ONDANSETRON HCL 4MG/2ML INJ IV PRN (11:04)
[2022-07-04 14:01] LABS: PLATELET ESTIMATE NORMAL
[2022-07-04 19:56] VITALS: BP 128/77
[2022-07-05] MEDS: OXYCODONE HCL 5MG TABLET PO PRN ×5 (02:21→21:18)
[2022-07-05] MEDS: DIPHENHYDRAMINE 50MG/ML VIAL IV SCH ×3 (05:57→21:19)
[2022-07-05 07:03] LABS: HEMATOCRIT. 22.1 % (36.0-48.0); HEMOGLOBIN. 7.3 g/dL (12.0-16.0); MEAN CORPUSCULAR HEMOGLOBIN 29.9 pg (28.0-32.0); MEAN CORPUSCULAR VOLUME 90.4 fL (81.0-99.0); MEAN PLATELET VOLUME 8.1 fl (7.4-10.4); PLATELET 323 x1000/uL (130-400); RED BLOOD CELL COUNT 2.45 mill/uL (4.2-5.4)
[2022-07-05 08:00] VITALS: BP 109/60
[2022-07-05] MEDS: FERROUS SULFATE 325MG TABLET PO SCH ×3 (08:45→16:59)
[2022-07-05] MEDS: POLYETHYLENE GLYCOL 3350 (17GM) 1 DOSE PACK PO SCH (08:45)
[2022-07-05] MEDS: PANTOT AC/MIN OIL/PET HY-PHL OINT (AQUAPHOR) TOP SCH (08:49)
[2022-07-05] MEDS: POTASSIUM CHLORIDE 20MEQ TABLET SR PO SCH (09:00)
[2022-07-05] MEDS: ONDANSETRON HCL 4MG/2ML INJ IV PRN ×2 (11:43→18:15)
[2022-07-05 18:44] LABS: PLATELET ESTIMATE NORMAL
[2022-07-05 20:16] VITALS: BP 136/88
[2022-07-06] MEDS: OXYCODONE HCL 5MG TABLET PO PRN ×5 (02:22→21:53)
[2022-07-06] MEDS: DIPHENHYDRAMINE 50MG/ML VIAL IV SCH ×3 (06:26→21:10)
[2022-07-06 08:00] VITALS: BP 137/87
[2022-07-06] MEDS: PANTOT AC/MIN OIL/PET HY-PHL OINT (AQUAPHOR) TOP SCH (09:00)
[2022-07-06] MEDS: FERROUS SULFATE 325MG TABLET PO SCH ×3 (09:06→17:26)
[2022-07-06] MEDS: POLYETHYLENE GLYCOL 3350 (17GM) 1 DOSE PACK PO SCH (09:06)
[2022-07-06] MEDS: ONDANSETRON HCL 4MG/2ML INJ IV PRN (09:06)
[2022-07-06] MEDS: POTASSIUM CHLORIDE 20MEQ TABLET SR PO SCH (09:06)
[2022-07-06 09:43] LABS: CHLORIDE 98 mEq/L (98-107)
[2022-07-06] MEDS ORDERED: MAGNESIUM 2 G PREMIX 50 ML IV NR (12:00)
[2022-07-06] MEDS: LACTULOSE 20G/30ML UDC PO SCH ×3 (14:06→21:09)
[2022-07-06 16:38] LABS: HEMATOCRIT. 23.2 % (36.0-48.0); HEMOGLOBIN. 7.6 g/dL (12.0-16.0); MEAN CORPUSCULAR HEMOGLOBIN 29.4 pg (28.0-32.0); MEAN CORPUSCULAR VOLUME 90.2 fL (81.0-99.0); MEAN PLATELET VOLUME 8.1 fl (7.4-10.4); PLATELET 321 x1000/uL (130-400); RED BLOOD CELL COUNT 2.57 mill/uL (4.2-5.4); RED CELL DISTRIBUTION WIDTH 18.9 % (11.6-14.6)
[2022-07-06 17:24] LABS: PLATELET ESTIMATE NORMAL
[2022-07-06 18:57] LABS: CHLORIDE 101 mEq/L (98-107)
[2022-07-06 20:00] VITALS: BP 138/96
[2022-07-07] MEDS: OXYCODONE HCL 5MG TABLET PO PRN ×5 (01:49→20:28)
[2022-07-07] MEDS: DIPHENHYDRAMINE 25MG CAPSULE PO PRN ×3 (06:36→20:28)
[2022-07-07 08:00] VITALS: BP 138/87
[2022-07-07] MEDS: POTASSIUM CHLORIDE 20MEQ TABLET SR PO SCH ×2 (09:00→09:48)
[2022-07-07] MEDS: FERROUS SULFATE 325MG TABLET PO SCH ×3 (09:46→16:25)
[2022-07-07] MEDS: POLYETHYLENE GLYCOL 3350 (17GM) 1 DOSE PACK PO SCH (09:48)
[2022-07-07] MEDS: PANTOT AC/MIN OIL/PET HY-PHL OINT (AQUAPHOR) TOP SCH (09:48)
[2022-07-07] MEDS ORDERED: MAGNESIUM GLUCONATE 500MG TABLET PO SCH (11:00)
[2022-07-07] MEDS: MAGNESIUM 2 G PREMIX 50 ML IV SCH ×2 (11:00→12:52)
[2022-07-07] MEDS: DIPHENHYDRAMINE 50MG/ML VIAL IV SCH (14:00)
[2022-07-07 16:18] VITALS: BP 119/81
[2022-07-07] MEDS: MAGNESIUM GLUCONATE 500MG TABLET PO SCH (17:52)
[2022-07-07 19:48] VITALS: BP 139/86
[2022-07-08] MEDS: OXYCODONE HCL 5MG TABLET PO PRN ×5 (00:47→21:35)
[2022-07-08] MEDS: DIPHENHYDRAMINE 25MG CAPSULE PO PRN ×3 (06:05→17:03)
[2022-07-08 08:00] VITALS: BP 117/82
[2022-07-08] MEDS: FERROUS SULFATE 325MG TABLET PO SCH ×3 (08:07→17:03)
[2022-07-08] MEDS: POTASSIUM CHLORIDE 20MEQ TABLET SR PO SCH (08:07)
[2022-07-08] MEDS: POLYETHYLENE GLYCOL 3350 (17GM) 1 DOSE PACK PO SCH (08:08)
[2022-07-08] MEDS: PANTOT AC/MIN OIL/PET HY-PHL OINT (AQUAPHOR) TOP SCH (08:08)
[2022-07-08] MEDS: MAGNESIUM GLUCONATE 500MG TABLET PO SCH (08:34)
[2022-07-08] MEDS ORDERED: OXYC10TA93 PO (12:31)
[2022-07-08 12:52] VITALS: BP 18/117
[2022-07-08 20:23] VITALS: BP 143/95
[2022-07-09] MEDS: OXYCODONE HCL 5MG TABLET PO PRN ×5 (01:54→21:22)
[2022-07-09] MEDS: DIPHENHYDRAMINE 25MG CAPSULE PO PRN ×2 (01:54→21:20)
[2022-07-09 08:00] VITALS: BP 123/72
[2022-07-09] MEDS: POTASSIUM CHLORIDE 20MEQ TABLET SR PO SCH ×2 (09:00→10:16)
[2022-07-09] MEDS: PANTOT AC/MIN OIL/PET HY-PHL OINT (AQUAPHOR) TOP SCH (09:00)
[2022-07-09] MEDS: ERGOCALCIFEROL 50000UNITS CAPSULE PO SCH (10:14)
[2022-07-09] MEDS: ONDANSETRON HCL 4MG/2ML INJ IV PRN (10:14)
[2022-07-09] MEDS: MAGNESIUM GLUCONATE 500MG TABLET PO SCH (10:15)
[2022-07-09] MEDS: FERROUS SULFATE 325MG TABLET PO SCH ×3 (10:16→17:24)
[2022-07-09] MEDS: POLYETHYLENE GLYCOL 3350 (17GM) 1 DOSE PACK PO SCH (10:16)
[2022-07-09] MEDS: ONDANSETRON 4MG ODT PO PRN (11:49)
[2022-07-09 20:00] VITALS: BP 124/70
[2022-07-10] MEDS: DIPHENHYDRAMINE 25MG CAPSULE PO PRN (05:20)
[2022-07-10] MEDS: OXYCODONE HCL 5MG TABLET PO PRN ×2 (05:20→12:42)
[2022-07-10 08:00] VITALS: BP 121/81
[2022-07-10] MEDS: MAGNESIUM GLUCONATE 500MG TABLET PO SCH (08:55)
[2022-07-10] MEDS: FERROUS SULFATE 325MG TABLET PO SCH (08:56)
[2022-07-10] MEDS: POTASSIUM CHLORIDE 20MEQ TABLET SR PO SCH (08:56)
[2022-07-10] MEDS: PANTOT AC/MIN OIL/PET HY-PHL OINT (AQUAPHOR) TOP SCH (08:57)
[2022-07-10] MEDS: POLYETHYLENE GLYCOL 3350 (17GM) 1 DOSE PACK PO SCH (08:57)
[2022-07-10 12:24] VITALS: BP 121/81
[2022-07-10 12:42] VITALS: BP 121/81
[2022-07-10] MEDS: ONDANSETRON 4MG ODT PO PRN (13:56)
== END 2022-07-10 14:15 | disposition home health service (06) | DRG 73 ==
PROVIDERS: ADMIT Physical Medicine & Rehabilitation Spinal Cord Injury Medicine; ATTEND Internal Medicine Nephrology
DX: G62.81 Critical illness polyneuropathy (principal); A41.02 Sepsis due to Methicillin resistant Staphylococcus aureus; J18.9 Pneumonia, unspecified organism; K65.9 Peritonitis, unspecified; K91.89 Other postprocedural complications and disorders of digestive system; L02.211 Cutaneous abscess of abdominal wall; N17.9 Acute kidney failure, unspecified; I47.1 Supraventricular tachycardia; J90 Pleural effusion, not elsewhere classified; K56.50 Intestinal adhesions [bands], unspecified as to partial versus complete obstruction; K56.7 Ileus, unspecified; D25.9 Leiomyoma of uterus, unspecified; D50.0 Iron deficiency anemia secondary to blood loss (chronic); E16.2 Hypoglycemia, unspecified; E87.6 Hypokalemia; F32.A Depression, unspecified; I10 Essential (primary) hypertension; N83.01 Follicular cyst of right ovary; E83.42 Hypomagnesemia; R26.9 Unspecified abnormalities of gait and mobility; N93.8 Other specified abnormal uterine and vaginal bleeding; F06.34 Mood disorder due to known physiological condition with mixed features; J38.4 Edema of larynx; J45.909 Unspecified asthma, uncomplicated; R53.81 Other malaise; R21 Rash and other nonspecific skin eruption; N73.6 Female pelvic peritoneal adhesions (postinfective); Z82.49 Family history of ischemic heart disease and other diseases of the circulatory system; Z88.0 Allergy status to penicillin; Z88.1 Allergy status to other antibiotic agents; Z88.2 Allergy status to sulfonamides; Z91.81 History of falling; Z79.899 Other long term (current) drug therapy
CPT/HCPCS: 36415; 80048; 80053; 83540; 83550; 83735; 84134; 84145; 85025; 93970; 97110; 97112; 97116; 97162; 97166; 97530; 97535; A6261; J1170; J1200; J1940; J2405; J3475; Q0162; Q0163

== ENCOUNTER → 2023-06-07 | Outpatient (CLI) | payer BC ==
[~2023-06-07] MED LIST changes: +OXYC-748 PO
== END | disposition home or self-care (01) ==
LOC: MAMMO 09:39
PROVIDERS: ATTEND Obstetrics & Gynecology Obstetrics
DX: C50.912 Malignant neoplasm of unspecified site of left female breast (principal)
CPT/HCPCS: 76642; 77066

== ENCOUNTER 2024-01-12 05:22 | Inpatient (IN) | payer BC ==
[2024-01-12] VITALS (7 sets, daily range): BP systolic 119–176; BP diastolic 59–96; PULSE 94–104; RESP 16–18; TEMP 97.1–97.3; O2SAT 98–99
[~2024-01-12] VITALS: Ht 162.6 cm; Wt 99.8 kg
[~2024-01-12 05:22] MED LIST changes: +ALBU6.7H15 INH
[2024-01-12 06:29] LABS: BASOPHILS % 0.8 % (0.0-2.0); CLARITY URINE CLEAR (CLEAR); COLOR URINE YELLOW (YELLOW); EOSINOPHILS % 1.6 % (0.0-5.0); GLUCOSE URINE NEGATIVE (NEGATIVE); HEMATOCRIT. 37.7 % (36.0-48.0); HEMOGLOBIN. 12.2 g/dL (12.0-16.0); KETONES URINE NEGATIVE (NEGATIVE); LEUKOCYTE ESTERASE URINE NEGATIVE (NEGATIVE); LYMPHOCYTES % 13.6 % (20.0-50.0); MEAN CORPUSCULAR HEMOGLOBIN 29.4 pg (28.0-32.0); MEAN CORPUSCULAR HGB CONC 32.5 g/dL (31.0-37.0); MEAN CORPUSCULAR VOLUME 90.4 fL (81.0-99.0); MEAN PLATELET VOLUME 11.2 fl (7.4-10.4); NITRITE URINE NEGATIVE (NEGATIVE); OCCULT BLOOD URINE 1+ (NEGATIVE); PH URINE 7.5 (4.5-8.0); PLATELET 193 x1000/uL (130-400); PROTEIN URINE 1+ (NEGATIVE); RED BLOOD CELL COUNT 4.17 mill/uL (4.2-5.4); RED CELL DISTRIBUTION WIDTH 14.7 % (11.6-14.6); SPECIFIC GRAVITY URINE 1.013 (1.005-1.030); UROBILINOGEN URINE 0.2 E.U./dL (0.2-1.0); WHITE BLOOD COUNT 18.3 x1000/uL (4.5-11.0)
[2024-01-12] MEDS: ALBUTEROL (0.083%) 2.5MG/3ML NEB HHN STA (06:36)
[2024-01-12] MEDS: IPRATROPIUM BROMIDE (0.02%) 0.5MG/2.5ML NEB HHN STA (06:36)
[2024-01-12 06:39] LABS: CHLORIDE 100 mEq/L (98-107); POTASSIUM 4.1 mEq/L (3.5-5.1); SODIUM 134 mEq/L (136-145)
[2024-01-12 06:40] LABS: CARBON DIOXIDE 27 mEq/L (21-32)
[2024-01-12] MEDS: PREDNISONE 20MG TABLET PO STA (06:41)
[2024-01-12 06:45] LABS: CREATININE 0.8 mg/dL (0.6-1.0); GLUCOSE 127 mg/dL (70-105); UREA NITROGEN BLOOD 9 mg/dL (9-23)
[2024-01-12 06:47] LABS: ALANINE AMINOTRANSFERASE 16 IU/L (10-49); ALBUMIN 4.1 g/dL (3.2-4.8); ASPARTATE AMINOTRANSFERASE 26 IU/L (<34); BILIRUBIN TOTAL 0.6 mg/dL (0.1-1.0); PROTEIN TOTAL 8.2 g/dL (6.0-8.3)
[2024-01-12 07:14] LABS: SQUAMOUS EPITHELIAL CELL URINE FEW /lpf (RARE/1+)
[2024-01-12 07:15] LABS: TROPONIN I HIGH SENSITIVITY < 4 ng/L (3.0-34); WBC URINE 0-2 /hpf (0-2)
[2024-01-12 07:16] LABS: RBC URINE 0-2 /hpf (0-2)
[2024-01-12 07:18] LABS: BACTERIA URINE NONE SEEN
[2024-01-12] MEDS: HYDRALAZINE 20MG/ML VIAL IV ONE ×2 (07:43→09:40)
[2024-01-12] MEDS: KETOROLAC 15MG/ML VIAL IV NR (08:34)
[2024-01-12] MEDS: ACETAMINOPHEN 325MG TABLET PO ONE (09:40)
[2024-01-12] MEDS: ASPIRIN 325MG EC TABLET PO ONE (09:40)
[2024-01-12 09:51] LABS: TROPONIN I HIGH SENSITIVITY < 4 ng/L (3.0-34)
[2024-01-12] MEDS ORDERED: AMLODIPINE 10MG TABLET PO ONE (10:00)
[2024-01-12] MEDS: AMLODIPINE 5MG TABLET PO NR (10:19)
[2024-01-12] MEDS ORDERED: MAGNESIUM/ALUMINUM HYDROXIDE/SIMETHICONE 30ML UDC PO PRN (11:00)
[2024-01-12] MEDS ORDERED: ONDANSETRON HCL 4MG/2ML INJ IV PRN (11:00)
[2024-01-12] MEDS ORDERED: DIPHENHYDRAMINE 50MG/ML VIAL IV PRN (11:00)
[2024-01-12] MEDS ORDERED: LOSARTAN 50 MG TABLET PO SCH (11:00)
[2024-01-12] MEDS ORDERED: ACETAMINOPHEN 325MG TABLET PO PRN (11:00)
[2024-01-12] MEDS: SODIUM CHLORIDE 0.9% INJ 3ML FLUSH IVF SCH (14:20)
[2024-01-12] MEDS: METHYLPREDNISOLONE SOD SUCC 125MG/2ML (ACT-O-VIAL) IV SCH (14:20)
[2024-01-12] MEDS: HYDRALAZINE HCL 25MG TABLET PO SCH (14:23)
[2024-01-12] MEDS: IPRATROPIUM/ALBUTEROL 0.5-3(2.5)MG/3ML NEB HHN SCH (14:24)
[2024-01-12] MEDS: CARVEDILOL 6.25 MG TABLET PO NR (14:51)
[2024-01-12] MEDS: HYDRALAZINE 20MG/ML VIAL IV PRN (14:54)
[2024-01-12] MEDS: ENOXAPARIN 30MG/0.3ML SYR SUBCUT SCH (18:10)
[2024-01-12] MEDS: KETOROLAC 15MG/ML VIAL IV PRN (20:34)
[2024-01-12] MEDS: HYDRALAZINE 20MG/ML VIAL IV NR (20:46)
[2024-01-12] MEDS: LORATADINE 10MG TABLET PO SCH (20:52)
[2024-01-12] MEDS: CARVEDILOL 6.25 MG TABLET PO SCH (20:52)
[2024-01-12] MEDS: OMEPRAZOLE 20MG CAPSULE EXTENDED RELEASE PO SCH (20:52)
[2024-01-12] MEDS ORDERED: CLONIDINE 0.1MG TABLET PO SCH (22:30)
[2024-01-12] MEDS ORDERED: IOHEXOL-300 100 ML BOTTLE ONE (23:05)
[2024-01-12] MEDS: GUAIFENESIN 600MG ER TABLET PO SCH (23:27)
[2024-01-13] VITALS (10 sets, daily range): BP systolic 121–145; BP diastolic 58–80; PULSE 18–96; RESP 18–20; TEMP 97.5–98.3; O2SAT 96
[2024-01-13] MEDS: ZOLPIDEM TARTRATE 5MG TABLET PO PRN (01:54)
[2024-01-13] MEDS: CLONIDINE 0.1MG TABLET PO SCH (09:13)
[2024-01-13] MEDS: AMLODIPINE 10MG TABLET PO SCH (09:14)
[2024-01-13] MEDS: ZOLPIDEM TARTRATE 5MG TABLET PO SCH (20:39)
[2024-01-14] VITALS (11 sets, daily range): BP systolic 123–160; BP diastolic 69–98; PULSE 80–98; RESP 18–20; TEMP 96.2–97.9; O2SAT 96
[2024-01-14] MEDS: ACETAMINOPHEN 325MG TABLET PO PRN (09:22)
[2024-01-14] MEDS: GUAIFENESIN 200MG/10ML SUGAR FREE UDC PO PRN (09:22)
[2024-01-14] MEDS: METHYLPREDNISOLONE SOD SUCC 40MG/ML (ACT-O-VIAL) IV SCH (13:54)
[2024-01-14] MEDS: IPRATROPIUM/ALBUTEROL 0.5-3(2.5)MG/3ML NEB HHN PRN (14:40)
[2024-01-14] MEDS: BENZONATATE 100MG CAPSULE PO PRN (20:09)
[2024-01-14] MEDS: IPRATROPIUM/ALBUTEROL 0.5-3(2.5)MG/3ML NEB HHN SCH (21:19)
[2024-01-15] VITALS (11 sets, daily range): BP systolic 130–172; BP diastolic 69–99; PULSE 76–88; RESP 18–24; TEMP 97.6–98.7; O2SAT 96–98
[2024-01-15] MEDS: FAMOTIDINE 20MG TABLET PO SCH (09:36)
[2024-01-15] MEDS: LORAZEPAM 1MG TABLET PO PRN (09:44)
[2024-01-15] MEDS: HYDRALAZINE HCL 25MG TABLET PO SCH (15:11)
[2024-01-15] MEDS ORDERED: MONTELUKAST SODIUM 10MG TABLET PO SCH (17:00)
[2024-01-15] MEDS ORDERED: FLUTICASONE PROPIONATE 50MCG/SPRAY BOTTLE BOTHNSTRLS SCH (17:00)
[2024-01-15] MEDS ORDERED: CARVEDILOL 12.5MG TABLET PO SCH (21:00)
== END 2024-01-15 18:54 | disposition home or self-care (01) | DRG 189 ==
LOC: ER 05:22 → EDBEDREQ 10:14 → EDBEDREQTM 10:14 → 7WST 16:34
PROVIDERS: ADMIT Internal Medicine; ATTEND Internal Medicine
DX: J96.01 Acute respiratory failure with hypoxia (principal); J45.901 Unspecified asthma with (acute) exacerbation; R65.10 Systemic inflammatory response syndrome (SIRS) of non-infectious origin without acute organ dysfunction; E87.1 Hypo-osmolality and hyponatremia; J32.9 Chronic sinusitis, unspecified; K43.9 Ventral hernia without obstruction or gangrene; I16.0 Hypertensive urgency; I10 Essential (primary) hypertension; Z79.899 Other long term (current) drug therapy; I25.10 Atherosclerotic heart disease of native coronary artery without angina pectoris; K21.9 Gastro-esophageal reflux disease without esophagitis; E66.9 Obesity, unspecified; Z88.0 Allergy status to penicillin; Z88.1 Allergy status to other antibiotic agents; Z88.2 Allergy status to sulfonamides; Z88.3 Allergy status to other anti-infective agents; Z68.37 Body mass index [BMI] 37.0-37.9, adult; Z91.011 Allergy to milk products; Z91.010 Allergy to peanuts; Z88.8 Allergy status to other drugs, medicaments and biological substances
CPT/HCPCS: 36415; 71045; 74177; 80053; 81003; 84484; 85025; 93005; 94640; 99285; J0360; J1650; J1885; J2919; J2920; J7512; Q9967

== ENCOUNTER 2024-02-12 04:10 | Emergency (ER) | payer BC ==
[~2024-02-12] VITALS: Ht 162.6 cm; Wt 120.9 kg
[2024-02-12 04:16] VITALS: BP 169/94; TEMP 98.6; O2SAT 97
[2024-02-12 04:20] VITALS: PULSE 84; RESP 20
[2024-02-12] MEDS ORDERED: ALBUTEROL (0.083%) 2.5MG/3ML NEB HHN STA (04:20)
[2024-02-12] MEDS ORDERED: IPRATROPIUM BROMIDE (0.02%) 0.5MG/2.5ML NEB HHN STA (04:20)
[2024-02-12] MEDS ORDERED: ALBU6.7H15 INH (05:41)
[2024-02-12] MEDS ORDERED: P50 MT (05:41)
[2024-02-12] MEDS ORDERED: ALBU05 NEB (05:41)
== END 2024-02-12 07:09 | disposition home or self-care (01) ==
LOC: ER 04:10
DX: J45.901 Unspecified asthma with (acute) exacerbation (principal); I10 Essential (primary) hypertension; Z98.890 Other specified postprocedural states; Z88.0 Allergy status to penicillin; Z88.2 Allergy status to sulfonamides; Z91.010 Allergy to peanuts; Z91.018 Allergy to other foods; Z91.011 Allergy to milk products
CPT/HCPCS: 99283; Z7610

== ENCOUNTER 2024-07-09 05:20 | Inpatient (IN) | payer BC ==
[~2024-07-09] VITALS: Ht 162.6 cm; Wt 99.8 kg
[~2024-07-09 05:20] MED LIST changes: +ALBU05 NEB; +P50 MT
[2024-07-09] MEDS: SODIUM CHLORIDE 0.9% 1,000 ML IV ONE (07:51)
[2024-07-09] MEDS: ONDANSETRON HCL 4MG/2ML INJ IV STA (07:51)
[2024-07-09] MEDS: KETOROLAC 30MG/ML VIAL IV STA (07:51)
[2024-07-09 08:15] LABS: BASOPHILS % 0.5 % (0.0-2.0); CHLORIDE 100 mEq/L (98-107); EOSINOPHILS % 1.4 % (0.0-5.0); HEMATOCRIT. 39.8 % (36.0-48.0); HEMOGLOBIN. 12.8 g/dL (12.0-16.0); LYMPHOCYTES % 12.7 % (20.0-50.0); MEAN CORPUSCULAR HEMOGLOBIN 29.3 pg (28.0-32.0); MEAN CORPUSCULAR HGB CONC 32.3 g/dL (31.0-37.0); MEAN CORPUSCULAR VOLUME 90.9 fL (81.0-99.0); MEAN PLATELET VOLUME 10.5 fl (7.4-10.4); MONOCYTES % 8.5 % (2.0-8.0); NEUTROPHILS % 76.9 % (40.0-76.0); PLATELET 211 x1000/uL (130-400); POTASSIUM 4.3 mEq/L (3.5-5.1); RED BLOOD CELL COUNT 4.37 mill/uL (4.2-5.4); RED CELL DISTRIBUTION WIDTH 14.4 % (11.6-14.6); SODIUM 137 mEq/L (136-145); WHITE BLOOD COUNT 12.2 x1000/uL (4.5-11.0)
[2024-07-09 08:16] LABS: CALCIUM 9.3 mg/dL (8.7-10.4); CARBON DIOXIDE 31 mEq/L (21-32)
[2024-07-09 08:21] LABS: CREATININE 0.8 mg/dL (0.6-1.0); GLUCOSE 152 mg/dL (70-105)
[2024-07-09 08:22] LABS: UREA NITROGEN BLOOD 13 mg/dL (9-23)
[2024-07-09 08:23] LABS: ALANINE AMINOTRANSFERASE 14 IU/L (10-49); ALBUMIN 4.1 g/dL (3.2-4.8); ASPARTATE AMINOTRANSFERASE 22 IU/L (<34)
[2024-07-09 08:24] LABS: BILIRUBIN TOTAL 0.3 mg/dL (0.1-1.0); PROTEIN TOTAL 7.9 g/dL (6.0-8.3)
[2024-07-09 08:26] LABS: PROTHROMBIN TIME 10.7 sec (9.6-11.0)
[2024-07-09 08:38] LABS: BILIRUBIN DIRECT < 0.1 mg/dL (<=3.0)
[2024-07-09 10:32] LABS: CLARITY URINE CLEAR (CLEAR); COLOR URINE YELLOW (YELLOW); GLUCOSE URINE NEGATIVE (NEGATIVE); KETONES URINE NEGATIVE (NEGATIVE); LEUKOCYTE ESTERASE URINE NEGATIVE (NEGATIVE); NITRITE URINE NEGATIVE (NEGATIVE); OCCULT BLOOD URINE NEGATIVE (NEGATIVE); PROTEIN URINE 2+ (NEGATIVE); SPECIFIC GRAVITY URINE 1.023 (1.005-1.030); UROBILINOGEN URINE 0.2 E.U./dL (0.2-1.0)
[2024-07-09 12:04] LABS: BACTERIA URINE 1+; RBC URINE 0-2 /hpf (0-2); SQUAMOUS EPITHELIAL CELL URINE 2+ /lpf (RARE/1+); WBC URINE 0-2 /hpf (0-2)
[2024-07-09 12:52] LABS: HCG SCREEN NEGATIVE
[2024-07-09] MEDS ORDERED: CLONIDINE 0.1MG TABLET PO PRN (13:30)
[2024-07-09] MEDS ORDERED: ACETAMINOPHEN 325MG TABLET PO PRN (13:30)
[2024-07-09] MEDS ORDERED: ONDANSETRON HCL 4MG/2ML INJ IV PRN (13:30)
[2024-07-09] MEDS: PANTOPRAZOLE SODIUM 40 MG/VIAL IV SCH (13:55)
[2024-07-09] MEDS: AMLODIPINE 5MG TABLET PO NR (13:55)
[2024-07-09] MEDS: MORPHINE SULFATE 2 MG/ML INJ (NOT FOR IM USE) IV PRN (13:56)
[2024-07-09] MEDS: SODIUM CHLORIDE 0.9% 1,000 ML IV SCH (14:11)
[2024-07-09 15:33] VITALS: BP 157/89; PULSE 70; RESP 17; TEMP 37.0296
[2024-07-09] MEDS: ENOXAPARIN 40MG/0.4ML SYR SUBCUT SCH (19:51)
[2024-07-09 20:00] VITALS: BP 127/73; PULSE 80; RESP 20; TEMP 36.44736; O2SAT 95
[2024-07-09] MEDS ORDERED: NALOXONE HCL 0.4MG/ML VIAL IV PRN (20:15)
[2024-07-09] MEDS: LEVOFLOXACIN 500MG PREMIX 100 ML IV SCH (20:19)
[2024-07-09] MEDS ORDERED: ZOLPIDEM TARTRATE 5MG TABLET PO PRN (21:00)
[2024-07-10] VITALS (7 sets, daily range): BP systolic 125–147; BP diastolic 73–86; PULSE 73–96; RESP 17–20; TEMP 35.94732–36.50292; O2SAT 96–100
[2024-07-10] MEDS: AMLODIPINE 10MG TABLET PO SCH (09:29)
[2024-07-10 10:47] LABS: BASOPHILS % 0.5 % (0.0-2.0); EOSINOPHILS % 2.7 % (0.0-5.0); HEMATOCRIT. 38.6 % (36.0-48.0); HEMOGLOBIN. 12.1 g/dL (12.0-16.0); MEAN CORPUSCULAR HEMOGLOBIN 28.8 pg (28.0-32.0); MEAN CORPUSCULAR HGB CONC 31.3 g/dL (31.0-37.0); MEAN CORPUSCULAR VOLUME 92.2 fL (81.0-99.0); MEAN PLATELET VOLUME 10.7 fl (7.4-10.4); MONOCYTES % 13.1 % (2.0-8.0); NEUTROPHILS % 57.7 % (40.0-76.0); PLATELET 195 x1000/uL (130-400); RED BLOOD CELL COUNT 4.19 mill/uL (4.2-5.4); RED CELL DISTRIBUTION WIDTH 14.9 % (11.6-14.6); WHITE BLOOD COUNT 9.1 x1000/uL (4.5-11.0)
[2024-07-10 11:21] LABS: CARBON DIOXIDE 27 mEq/L (21-32); CHLORIDE 105 mEq/L (98-107); POTASSIUM 4.5 mEq/L (3.5-5.1); SODIUM 137 mEq/L (136-145)
[2024-07-10 11:22] LABS: CALCIUM 8.6 mg/dL (8.7-10.4)
[2024-07-10 11:27] LABS: CREATININE 0.8 mg/dL (0.6-1.0); GLUCOSE 112 mg/dL (70-105); UREA NITROGEN BLOOD 12 mg/dL (9-23)
[2024-07-10] MEDS: LEVOFLOXACIN 500MG PREMIX 100 ML IV SCH (12:03)
[2024-07-10] MEDS: LEVOFLOXACIN 250MG PREMIX 50 ML IV SCH ×2 (12:04→16:09)
[2024-07-10] MEDS ORDERED: FAMO-135 PO (14:48)
[2024-07-10] MEDS ORDERED: MAG355OR21 MT (14:48)
[2024-07-11] MEDS ORDERED: FAMOTIDINE 20MG/2ML VIAL IV SCH (09:00)
== END 2024-07-10 20:54 | disposition home or self-care (01) | DRG 392 ==
LOC: ER 05:32 → EDBEDREQ 11:25 → 6EST 11:40 → EDBEDREQ 11:45
PROVIDERS: ADMIT Internal Medicine; ATTEND Internal Medicine
DX: K29.70 Gastritis, unspecified, without bleeding (principal); I10 Essential (primary) hypertension; J45.909 Unspecified asthma, uncomplicated; K43.9 Ventral hernia without obstruction or gangrene; F41.9 Anxiety disorder, unspecified; Z88.2 Allergy status to sulfonamides; Z88.3 Allergy status to other anti-infective agents; Z88.0 Allergy status to penicillin; Z88.1 Allergy status to other antibiotic agents; Z91.018 Allergy to other foods; Z79.899 Other long term (current) drug therapy; Z91.011 Allergy to milk products; Z90.49 Acquired absence of other specified parts of digestive tract
CPT/HCPCS: 36415; 74176; 80048; 80076; 81003; 84703; 85025; 99285; J1650; J1885; J1956; J2270; J2405; J2470; J7030

== ENCOUNTER 2024-07-28 02:30 | Emergency (ER) | payer BC ==
[~2024-07-28 02:30] MED LIST changes: -ALBU18HF2 IH; -ALBU6.7H15 INH; -ASCO500C18 PO; -HYDR-4001 MT; -IBUP-2029 MT; +MAG355OR21 MT; -OXYC-748 PO; -P50 MT; -T3 PO
[2024-07-28 03:17] VITALS: PULSE 67; RESP 20; O2SAT 100
== END 2024-07-28 04:00 | disposition home or self-care (01) ==
LOC: ER 03:12
DX: S91.205A Unspecified open wound of left lesser toe(s) with damage to nail, initial encounter (principal); M79.674 Pain in right toe(s); I10 Essential (primary) hypertension; F41.9 Anxiety disorder, unspecified; Z88.2 Allergy status to sulfonamides; Z88.1 Allergy status to other antibiotic agents; Z88.0 Allergy status to penicillin; X58.XXXA Exposure to other specified factors, initial encounter; Y93.89 Activity, other specified; Y92.89 Other specified places as the place of occurrence of the external cause; Y99.8 Other external cause status
CPT/HCPCS: 99281

== ENCOUNTER 2024-11-12 06:39 | Emergency (ER) | payer BC ==
[~2024-11-12] VITALS: Ht 162.6 cm; Wt 124.0 kg
[2024-11-12 06:46] VITALS: O2SAT 100
[2024-11-12] MEDS ORDERED: AMLODIPINE 10MG TABLET PO ONE (07:15)
[2024-11-12 07:34] LABS: BASOPHILS % 0.6 % (0.0-2.0); DIFFERENTIAL COMMENT 0; EOSINOPHILS % 3.4 % (0.0-5.0); HEMATOCRIT. 38.8 % (36.0-48.0); HEMOGLOBIN. 12.4 g/dL (12.0-16.0); LYMPHOCYTES % 23.5 % (20.0-50.0); MEAN CORPUSCULAR VOLUME 90.8 fL (81.0-99.0); MEAN PLATELET VOLUME 10.8 fl (7.4-10.4); MONOCYTES % 12.4 % (2.0-8.0); NEUTROPHILS % 60.1 % (40.0-76.0); PLATELET 189 x1000/uL (130-400); RED BLOOD CELL COUNT 4.27 mill/uL (4.2-5.4); RED CELL DISTRIBUTION WIDTH 14.5 % (11.6-14.6); WHITE BLOOD COUNT 10.4 x1000/uL (4.5-11.0)
[2024-11-12 07:38] LABS: CHLORIDE 102 mEq/L (98-107); POTASSIUM 3.8 mEq/L (3.5-5.1); SODIUM 137 mEq/L (136-145)
[2024-11-12 07:39] LABS: CALCIUM 9.6 mg/dL (8.7-10.4); CARBON DIOXIDE 30 mEq/L (21-32)
[2024-11-12 07:44] LABS: CREATININE 0.9 mg/dL (0.6-1.0); GLUCOSE 91 mg/dL (70-105); UREA NITROGEN BLOOD 15 mg/dL (9-23)
[2024-11-12] MEDS: AMLODIPINE 10MG TABLET PO NR (07:45)
[2024-11-12] MEDS: ACETAMINOPHEN 325MG TABLET PO ONE (08:47)
[2024-11-12] MEDS ORDERED: AMLO10TA80 PO (08:50)
[2024-11-12 09:01] VITALS: BP 189/107; PULSE 77; RESP 11; TEMP 36.6; O2SAT 98
== END 2024-11-12 09:05 | disposition home or self-care (01) ==
LOC: ER 06:49
DX: I10 Essential (primary) hypertension (principal); Z79.899 Other long term (current) drug therapy; Z88.0 Allergy status to penicillin; Z88.1 Allergy status to other antibiotic agents; Z88.2 Allergy status to sulfonamides; Z91.148 Patient's other noncompliance with medication regimen for other reason
CPT/HCPCS: 36415; 71045; 80048; 85025; 99284

== ENCOUNTER 2025-01-14 02:00 | Inpatient (IN) | payer BC ==
[~2025-01-14] VITALS: Ht 162.6 cm; Wt 125.2 kg
[~2025-01-14 02:00] MED LIST changes: +AMLO10TA80 PO; +CIPR-264 MT; +IBUP-2028 MT; +LEVO-65 MT; +METH-653 MT; +MORP15TA67 MT; +ONDA4TAB50 MT
[2025-01-14 03:09] LABS: BASOPHILS % 0.8 % (0.0-2.0); DIFFERENTIAL COMMENT 0; EOSINOPHILS % 3.2 % (0.0-5.0); HEMATOCRIT. 36.3 % (36.0-48.0); HEMOGLOBIN. 11.8 g/dL (12.0-16.0); LYMPHOCYTES % 19.5 % (20.0-50.0); MEAN CORPUSCULAR HEMOGLOBIN 29.3 pg (28.0-32.0); MEAN CORPUSCULAR HGB CONC 32.4 g/dL (31.0-37.0); MEAN CORPUSCULAR VOLUME 90.3 fL (81.0-99.0); MEAN PLATELET VOLUME 9.7 fl (7.4-10.4); MONOCYTES % 11.3 % (2.0-8.0); NEUTROPHILS % 65.2 % (40.0-76.0); PLATELET 202 x1000/uL (130-400); RED BLOOD CELL COUNT 4.02 mill/uL (4.2-5.4); RED CELL DISTRIBUTION WIDTH 14.6 % (11.6-14.6); WHITE BLOOD COUNT 10.3 x1000/uL (4.5-11.0)
[2025-01-14 03:17] LABS: CHLORIDE 103 mEq/L (98-107); POTASSIUM 3.6 mEq/L (3.5-5.1); SODIUM 138 mEq/L (136-145)
[2025-01-14 03:18] LABS: CALCIUM 9.1 mg/dL (8.7-10.4); CARBON DIOXIDE 28 mEq/L (21-32)
[2025-01-14 03:23] LABS: CREATININE 0.9 mg/dL (0.6-1.0); GLUCOSE 138 mg/dL (70-105); UREA NITROGEN BLOOD 12 mg/dL (9-23)
[2025-01-14 03:25] LABS: ALANINE AMINOTRANSFERASE 18 IU/L (10-49); ASPARTATE AMINOTRANSFERASE 19 IU/L (<34); BILIRUBIN DIRECT 0.1 mg/dL (<=3.0); BILIRUBIN TOTAL 0.4 mg/dL (0.1-1.0)
[2025-01-14 03:26] LABS: PROTEIN TOTAL 7.3 g/dL (6.0-8.3)
[2025-01-14 03:37] LABS: CLARITY URINE CLOUDY (CLEAR); COLOR URINE YELLOW (YELLOW); GLUCOSE URINE NEGATIVE (NEGATIVE); KETONES URINE TRACE (NEGATIVE); LEUKOCYTE ESTERASE URINE NEGATIVE (NEGATIVE); NITRITE URINE NEGATIVE (NEGATIVE); OCCULT BLOOD URINE 3+ (NEGATIVE); PROTEIN URINE 3+ (NEGATIVE); SPECIFIC GRAVITY URINE 1.028 (1.005-1.030)
[2025-01-14 04:04] LABS: HCG SCREEN NEGATIVE
[2025-01-14 04:37] LABS: BACTERIA URINE 2+; SQUAMOUS EPITHELIAL CELL URINE 2+ /lpf (RARE/1+); WBC URINE 0-2 /hpf (0-2)
[2025-01-14 04:38] LABS: AMORPHOUS SEDIMENT URINE 2+ /lpf
[2025-01-14] MEDS: SODIUM CHLORIDE 0.9% 1,000 ML IV ONE (04:43)
[2025-01-14] MEDS: CLONIDINE 0.1MG TABLET PO SCH (04:44)
[2025-01-14] MEDS: MORPHINE SULFATE 4 MG/ML INJ (FOR IV/IM USE) IV ONE (04:44)
[2025-01-14] MEDS: ONDANSETRON HCL 4MG/2ML INJ IV ONE (04:44)
[2025-01-14] MEDS: ACETAMINOPHEN 1000MG/100ML 100 ML IV ONE (04:45)
[2025-01-14] MEDS: MORPHINE SULFATE 4 MG/ML INJ (FOR IV/IM USE) IV SCH (06:52)
[2025-01-14 08:20] VITALS: BP 127/84; PULSE 64; RESP 19; TEMP 36.1
[2025-01-14] MEDS ORDERED: MORPHINE SULFATE 2 MG/ML INJ (NOT FOR IM USE) IV PRN (09:45)
[2025-01-14] MEDS ORDERED: NALOXONE HCL 0.4MG/ML VIAL IV PRN (10:00)
[2025-01-14] MEDS: PANTOPRAZOLE SODIUM 40 MG/VIAL IV SCH (11:35)
[2025-01-14] MEDS: ONDANSETRON HCL 4MG/2ML INJ IV PRN (11:35)
[2025-01-14] MEDS: DEXT 5%/0.45% NACL 1000ML 1,000 ML IV SCH (11:35)
[2025-01-14] MEDS: MORPHINE SULFATE 4 MG/ML INJ (FOR IV/IM USE) IV PRN (11:36)
[2025-01-14 12:00] VITALS: BP 124/89; PULSE 72; RESP 18; TEMP 36.5; O2SAT 97
[2025-01-14] MEDS: DIATR MEGLU/DIATRIZOATE SOLN 30ML PO SCH (15:28)
[2025-01-14 16:00] VITALS: BP 143/92; PULSE 70; RESP 18; TEMP 36.2; O2SAT 95
[2025-01-14] MEDS ORDERED: TRIAMCINOLONE ACETONIDE 0.1 % OINT 15GM TOP SCH (16:00)
[2025-01-14 18:40] LABS: HEPATITIS B SURFACE ANTIGEN NEGATIVE (Negative)
[2025-01-14] MEDS: TRIAMCINOLONE ACETONIDE 0.1 % OINT 15GM TOP PRN (18:42)
[2025-01-14 19:01] LABS: HEPATITIS C AB NON REACTIVE (Neg) (Negative)
[2025-01-14 20:00] VITALS: BP 149/86; PULSE 71; RESP 17; TEMP 36.3; O2SAT 98
[2025-01-14] MEDS ORDERED: IOHEXOL-300 100 ML BOTTLE ONE (23:20)
[2025-01-15] VITALS: BP 163/80; PULSE 77; RESP 20; TEMP 36.8; O2SAT 97
[2025-01-15 04:00] VITALS: BP 127/71; PULSE 76; RESP 17; TEMP 36.4; O2SAT 97
[2025-01-15 08:00] VITALS: BP 166/89; PULSE 72; RESP 18; TEMP 36.5; O2SAT 95
[2025-01-15 12:00] VITALS: BP 144/83; PULSE 70; RESP 18; TEMP 36.4; O2SAT 95
[2025-01-15 16:00] VITALS: BP 160/95; PULSE 66; RESP 19; TEMP 36.7; O2SAT 94
[2025-01-15 20:00] VITALS: BP 172/91; PULSE 80; RESP 19; TEMP 37.4; O2SAT 100
[2025-01-16] VITALS: BP 156/88; PULSE 82; RESP 19; TEMP 37.7; O2SAT 95
[2025-01-16 04:00] VITALS: BP 161/95; PULSE 68; RESP 19; TEMP 37.3; O2SAT 95
[2025-01-16 08:00] VITALS: BP 139/85; PULSE 68; RESP 18; TEMP 36.8; O2SAT 96
[2025-01-16] MEDS: FAMOTIDINE 20MG TABLET PO SCH (08:22)
[2025-01-16 12:00] VITALS: BP 158/87; PULSE 72; RESP 18; TEMP 36.7; O2SAT 97
[2025-01-16 13:02] VITALS: RESP 18
[2025-01-16 13:35] VITALS: BP 158/87; PULSE 72; TEMP 98.1; O2SAT 97
[2025-01-16] MEDS ORDERED: AMLODIPINE 10MG TABLET PO SCH (21:00)
== END 2025-01-16 16:18 | disposition home or self-care (01) | DRG 394 ==
LOC: ER 02:00 → 6EST 06:00 → EDBEDREQ 06:03 → EDBEDREQTM 06:03 → ENRESERV 07:54 → 6EST 11:01
PROVIDERS: ADMIT Internal Medicine; ATTEND Internal Medicine
DX: K43.6 Other and unspecified ventral hernia with obstruction, without gangrene (principal); Z68.42 Body mass index [BMI] 45.0-49.9, adult; I10 Essential (primary) hypertension; J45.909 Unspecified asthma, uncomplicated; E66.01 Morbid (severe) obesity due to excess calories; F41.9 Anxiety disorder, unspecified; Z88.0 Allergy status to penicillin; Z88.1 Allergy status to other antibiotic agents; Z88.2 Allergy status to sulfonamides; Z88.3 Allergy status to other anti-infective agents; Z90.49 Acquired absence of other specified parts of digestive tract
CPT/HCPCS: 36415; 74018; 74176; 74177; 80048; 80076; 81003; 84703; 85025; 86705; 87340; 99285; A4606; J2270; J2405; J2470; J7030; Q9963; Q9967; J0131

== ENCOUNTER 2025-02-10 02:51 | Inpatient (IN) | payer BC ==
[~2025-02-10] VITALS: Ht 162.6 cm; Wt 121.1 kg
[2025-02-10] VITALS (8 sets, daily range): BP systolic 132–154; BP diastolic 77–87; PULSE 60–95; RESP 16–20; TEMP 35.9–36.6; O2SAT 92–97
[~2025-02-10 02:51] MED LIST changes: -CIPR-264 MT; -LEVO-65 MT; -MORP15TA67 MT
[2025-02-10 03:27] LABS: CLARITY URINE CLOUDY (CLEAR); COLOR URINE YELLOW (YELLOW); GLUCOSE URINE NEGATIVE (NEGATIVE); KETONES URINE TRACE (NEGATIVE); LEUKOCYTE ESTERASE URINE NEGATIVE (NEGATIVE); NITRITE URINE NEGATIVE (NEGATIVE); OCCULT BLOOD URINE 2+ (NEGATIVE); PH URINE 6.0 (4.5-8.0); PROTEIN URINE 3+ (NEGATIVE); SPECIFIC GRAVITY URINE 1.033 (1.005-1.030); UROBILINOGEN URINE 1.0 E.U./dL (0.2-1.0)
[2025-02-10] MEDS ORDERED: FAMOTIDINE 20MG/2ML VIAL IV STA (04:02)
[2025-02-10] MEDS ORDERED: MORPHINE SULFATE 4 MG/ML INJ (FOR IV/IM USE) IV STA (04:02)
[2025-02-10] MEDS ORDERED: ONDANSETRON HCL 4MG/2ML INJ IV STA (04:02)
[2025-02-10 04:12] LABS: SQUAMOUS EPITHELIAL CELL URINE 1+ /lpf (RARE/1+)
[2025-02-10 04:13] LABS: WBC URINE 0-2 /hpf (0-2)
[2025-02-10 04:14] LABS: BACTERIA URINE NONE SEEN
[2025-02-10] MEDS: SODIUM CHLORIDE 0.9% 1,000 ML IV ONE (04:15)
[2025-02-10] MEDS ORDERED: LABETALOL 5MG/ML 4ML INJ IV ONE (04:45)
[2025-02-10 04:48] LABS: BASOPHILS % 1.0 % (0.0-2.0); EOSINOPHILS % 3.6 % (0.0-5.0); HEMATOCRIT. 39.4 % (36.0-48.0); HEMOGLOBIN. 12.8 g/dL (12.0-16.0); LYMPHOCYTES % 17.6 % (20.0-50.0); MONOCYTES % 9.4 % (2.0-8.0); NEUTROPHILS % 68.4 % (40.0-76.0); RED BLOOD CELL COUNT 4.31 mill/uL (4.2-5.4); RED CELL DISTRIBUTION WIDTH 14.7 % (11.6-14.6)
[2025-02-10 05:21] LABS: MEAN PLATELET VOLUME 11.0 fl (7.4-10.4); PLATELET 194 x1000/uL (130-400)
[2025-02-10 06:15] LABS: CREATININE 0.9 mg/dL (0.6-1.0); UREA NITROGEN BLOOD 15 mg/dL (9-23)
[2025-02-10 06:17] LABS: ASPARTATE AMINOTRANSFERASE 23 IU/L (<34); BILIRUBIN DIRECT 0.2 mg/dL (<=3.0); BILIRUBIN TOTAL 0.5 mg/dL (0.1-1.0); PROTEIN TOTAL 7.8 g/dL (6.0-8.3)
[2025-02-10 06:25] LABS: HCG SCREEN NEGATIVE
[2025-02-10] MEDS ORDERED: NICARDIPINE 40MG/200ML PREMIX 200 ML IV PRN (06:30)
[2025-02-10] MEDS: CLONIDINE 0.1MG TABLET PO NR (06:42)
[2025-02-10] MEDS: LABETALOL 5MG/ML 4ML INJ IV NR (06:44)
[2025-02-10] MEDS: ONDANSETRON HCL 4MG/2ML INJ IV NR (06:44)
[2025-02-10] MEDS: FAMOTIDINE 20MG/2ML VIAL IV NR (06:44)
[2025-02-10] MEDS: MORPHINE SULFATE 4 MG/ML INJ (FOR IV/IM USE) IV NR (06:45)
[2025-02-10] MEDS ORDERED: LORATADINE/PSEUDOEPHED 5/120MG TABLET 12HR PO SCH (09:00)
[2025-02-10] MEDS: PSEUDOEPHEDRINE HCL 30MG TABLET PO SCH (09:00)
[2025-02-10] MEDS: PANTOPRAZOLE SODIUM 40 MG/VIAL IV SCH (09:27)
[2025-02-10] MEDS: AMLODIPINE 10MG TABLET PO SCH (09:28)
[2025-02-10] MEDS: LORATADINE 10MG TABLET PO SCH (09:28)
[2025-02-10] MEDS: IPRATROPIUM/ALBUTEROL 0.5-3(2.5)MG/3ML NEB NEB SCH (10:54)
[2025-02-10] MEDS: HYDROMORPHONE HCL/PF 2MG/ML INJ IV SCH (14:39)
[2025-02-10] MEDS ORDERED: NALOXONE HCL 0.4MG/ML VIAL IV PRN ×2 (14:45→23:45)
[2025-02-10] MEDS: ONDANSETRON HCL 4MG/2ML INJ IV PRN (16:24)
[2025-02-10] MEDS ORDERED: IOHEXOL-300 100 ML BOTTLE ONE (20:01)
[2025-02-10] MEDS: MORPHINE SULFATE 2 MG/ML INJ (NOT FOR IM USE) IV PRN (23:55)
[2025-02-11] VITALS: BP 155/84; PULSE 44; RESP 20; TEMP 36.4; O2SAT 96
[2025-02-11 04:00] VITALS: BP 150/81; PULSE 75; RESP 20; TEMP 36.3; O2SAT 97
[2025-02-11 08:00] VITALS: BP 128/60; PULSE 76; RESP 20; TEMP 36.3; O2SAT 99
[2025-02-11 12:00] VITALS: BP 138/77; PULSE 75; RESP 18; TEMP 36.7; O2SAT 78
[2025-02-11 16:00] VITALS: BP 160/85; PULSE 76; RESP 17; TEMP 36.6; O2SAT 77
[2025-02-11] MEDS: HYDRALAZINE 20MG/ML VIAL IV PRN (18:38)
[2025-02-11 20:00] VITALS: BP 151/85; PULSE 94; RESP 18; TEMP 36.4; O2SAT 100
[2025-02-12] VITALS: BP 153/54; PULSE 89; RESP 19; TEMP 36.6; O2SAT 100
[2025-02-12 04:00] VITALS: BP 144/77; PULSE 87; RESP 18; TEMP 36.6; O2SAT 100
[2025-02-12 12:00] VITALS: BP 136/66; PULSE 87; RESP 16; TEMP 36.5; O2SAT 96
[2025-02-12 16:00] VITALS: BP 162/99; PULSE 82; RESP 18; TEMP 36.7; O2SAT 97
[2025-02-12 20:00] VITALS: BP 151/92; PULSE 80; RESP 18; TEMP 36.4; O2SAT 96
[2025-02-13] VITALS (9 sets, daily range): BP systolic 131–156; BP diastolic 70–95; PULSE 78–88; RESP 16–20; TEMP 36.1–36.4; O2SAT 94–99
[2025-02-13 12:29] LABS: BASOPHILS % 0.5 % (0.0-2.0); EOSINOPHILS % 2.7 % (0.0-5.0); HEMATOCRIT. 36.9 % (36.0-48.0); HEMOGLOBIN. 12.3 g/dL (12.0-16.0); LYMPHOCYTES % 22.8 % (20.0-50.0); MEAN PLATELET VOLUME 10.7 fl (7.4-10.4); MONOCYTES % 12.4 % (2.0-8.0); NEUTROPHILS % 61.6 % (40.0-76.0); PLATELET 201 x1000/uL (130-400); RED BLOOD CELL COUNT 4.08 mill/uL (4.2-5.4); RED CELL DISTRIBUTION WIDTH 14.8 % (11.6-14.6)
[2025-02-13] MEDS ORDERED: HYDRALAZINE 10 MG in SODIUM CHLORIDE 0.9% 49.5 ML IV PRN (17:00)
[2025-02-14] VITALS (8 sets, daily range): BP systolic 129–143; BP diastolic 63–83; PULSE 75–90; RESP 16–19; TEMP 36.3–36.9; O2SAT 96–100
[2025-02-14] MEDS ORDERED: [UNRECOGNIZED DRUG - CODE] TOP (14:39)
[2025-02-14] MEDS: HYDROCORTISONE 1% CREAM 30GM TOP SCH (16:46)
== END 2025-02-14 18:38 | disposition home or self-care (01) | DRG 395 ==
LOC: ER 02:51 → 6WST 05:07 → EDBEDREQ 05:24 → EDBEDREQTM 05:24 → ENRESERV 05:37 → 6WST 18:29 → 8EST 02-13 16:53
PROVIDERS: ADMIT Family Medicine Adult Medicine; ATTEND Family Medicine Adult Medicine
DX: K43.9 Ventral hernia without obstruction or gangrene (principal); I10 Essential (primary) hypertension; F41.9 Anxiety disorder, unspecified; G89.29 Other chronic pain; M54.50 Low back pain, unspecified; Z79.899 Other long term (current) drug therapy; Z88.0 Allergy status to penicillin; Z88.1 Allergy status to other antibiotic agents; Z88.2 Allergy status to sulfonamides; Z88.3 Allergy status to other anti-infective agents; Z88.8 Allergy status to other drugs, medicaments and biological substances
CPT/HCPCS: 36415; 71045; 74177; 80048; 80076; 81003; 84703; 85025; 94070; 94640; 94664; 94760; 98960; 99285; J0360; J1171; J1308; J2270; J2405; J2470; J3490; J7030; Q9967

== ENCOUNTER → 2025-03-12 | Outpatient (CLI) | payer BC ==
[~2025-03-12] MED LIST changes: -AMLO10TA80 MT; -IBUP-2028 MT; +[UNRECOGNIZED DRUG - CODE] TOP
[2025-03-12 09:24] LABS: BASOPHILS % 1.1 % (0.0-2.0); EOSINOPHILS % 3.0 % (0.0-5.0); HEMATOCRIT. 35.3 % (36.0-48.0); HEMOGLOBIN. 11.5 g/dL (12.0-16.0); LYMPHOCYTES % 24.1 % (20.0-50.0); MEAN PLATELET VOLUME 10.1 fl (7.4-10.4); MONOCYTES % 12.5 % (2.0-8.0); NEUTROPHILS % 59.3 % (40.0-76.0); PLATELET 195 x1000/uL (130-400); RED BLOOD CELL COUNT 3.95 mill/uL (4.2-5.4); RED CELL DISTRIBUTION WIDTH 14.7 % (11.6-14.6)
[2025-03-12 09:36] LABS: CREATININE 0.8 mg/dL (0.6-1.0); TRIGLYCERIDE 131 mg/dL (0-150); UREA NITROGEN BLOOD 15 mg/dL (9-23)
[2025-03-12 09:37] LABS: LDL CHOLESTEROL 131 mg/dL (5-100)
[2025-03-12 09:38] LABS: ASPARTATE AMINOTRANSFERASE 20 IU/L (<34); BILIRUBIN TOTAL 0.4 mg/dL (0.1-1.0); PROTEIN TOTAL 7.5 g/dL (6.0-8.3)
[2025-03-12 09:40] LABS: T4 FREE 1.14 ng/dL (0.89-1.76)
== END | disposition home or self-care (01) ==
LOC: LAB 08:55
PROVIDERS: ATTEND Family Medicine Adult Medicine
DX: I10 Essential (primary) hypertension (principal); K43.6 Other and unspecified ventral hernia with obstruction, without gangrene; K21.9 Gastro-esophageal reflux disease without esophagitis; R53.83 Other fatigue; R10.84 Generalized abdominal pain; Z00.01 Encounter for general adult medical examination with abnormal findings; Z82.49 Family history of ischemic heart disease and other diseases of the circulatory system
CPT/HCPCS: 36415; 71046; 80053; 80061; 82306; 83540; 83550; 84439; 84443; 85025

== ENCOUNTER 2025-06-17 17:24 | Emergency (ER) | payer BC ==
[~2025-06-17] VITALS: Ht 167.6 cm; Wt 91.0 kg
[2025-06-17 17:35] VITALS: BP 173/104; TEMP 36.7; O2SAT 95
[2025-06-17] MEDS: PREDNISONE 20MG TABLET PO ONE (19:26)
[2025-06-17 20:25] LABS: CLARITY URINE CLOUDY (CLEAR); COLOR URINE YELLOW (YELLOW); GLUCOSE URINE NEGATIVE (NEGATIVE); KETONES URINE NEGATIVE (NEGATIVE); LEUKOCYTE ESTERASE URINE NEGATIVE (NEGATIVE); NITRITE URINE NEGATIVE (NEGATIVE); OCCULT BLOOD URINE 2+ (NEGATIVE); PH URINE 5.5 (4.5-8.0); PROTEIN URINE 2+ (NEGATIVE); SPECIFIC GRAVITY URINE 1.017 (1.005-1.030); UROBILINOGEN URINE 0.2 E.U./dL (0.2-1.0)
[2025-06-17 21:05] LABS: BACTERIA URINE 2+; SQUAMOUS EPITHELIAL CELL URINE 2+ /lpf (RARE/1+); WBC URINE 0-2 /hpf (0-2)
[2025-06-17] MEDS: IPRATROPIUM/ALBUTEROL 0.5-3(2.5)MG/3ML NEB HHN ONE (22:23)
[2025-06-17] MEDS: IPRATROPIUM/ALBUTEROL 0.5-3(2.5)MG/3ML NEB ONE (22:34)
[2025-06-17 23:20] VITALS: PULSE 98; RESP 20; O2SAT 94
[2025-06-18] MEDS: IPRATROPIUM/ALBUTEROL 0.5-3(2.5)MG/3ML NEB HHN ONE (00:04)
[2025-06-18] MEDS ORDERED: FLUT9.9S16 BOTHNSTRLS (00:19)
[2025-06-18] MEDS ORDERED: GUAI-450 MT (00:19)
[2025-06-18] MEDS ORDERED: ALBU90AE INH (00:19)
[2025-06-18] MEDS ORDERED: P50 MT (00:19)
[2025-06-18] MEDS ORDERED: TRIA15CR61 TP (00:20)
[2025-06-18] MEDS ORDERED: CIPHCO RIGHT EAR (00:24)
[2025-06-18 00:47] VITALS: PULSE 99; RESP 22; O2SAT 97
[2025-06-18] MEDS ORDERED: OFLO5DRO4 RIGHT EAR (02:57)
== END 2025-06-18 01:03 | disposition home or self-care (01) ==
LOC: ER 17:24
DX: J45.901 Unspecified asthma with (acute) exacerbation (principal); H60.509 Unspecified acute noninfective otitis externa, unspecified ear; B97.89 Other viral agents as the cause of diseases classified elsewhere; L20.9 Atopic dermatitis, unspecified; I10 Essential (primary) hypertension; Z88.0 Allergy status to penicillin; Z88.1 Allergy status to other antibiotic agents; Z88.2 Allergy status to sulfonamides; Z91.010 Allergy to peanuts; Z91.018 Allergy to other foods; Z91.0110 Allergy to milk products, unspecified
CPT/HCPCS: 81003; 81025; 71045; 94760; 99285; 94640; J7512; Z7610 ×4

== ENCOUNTER 2025-06-25 18:05 | Inpatient (IN) | payer BC ==
[~2025-06-25] VITALS: Ht 162.6 cm; Wt 99.8 kg
[~2025-06-25 18:05] MED LIST changes: +ALBU90AE INH; +FLUT9.9S16 BOTHNSTRLS; +GUAI-450 MT; +OFLO5DRO4 RIGHT EAR; +P50 MT; +TRIA15CR61 TP
[2025-06-25 18:25] VITALS: O2SAT 96
[2025-06-25 19:25] LABS: CREATININE 0.9 mg/dL (0.6-1.0); UREA NITROGEN BLOOD 12 mg/dL (9-23)
[2025-06-25 19:27] LABS: ASPARTATE AMINOTRANSFERASE 24 IU/L (<34); BILIRUBIN DIRECT 0.1 mg/dL (<=3.0); BILIRUBIN TOTAL 0.5 mg/dL (0.1-1.0); PROTEIN TOTAL 7.8 g/dL (6.0-8.3)
[2025-06-25] MEDS ORDERED: KETOROLAC 15MG/ML VIAL IV ONE (19:30)
[2025-06-25] MEDS ORDERED: ONDANSETRON HCL 4MG/2ML INJ IV ONE (19:30)
[2025-06-25 19:45] LABS: HEMATOCRIT. 42.4 % (36.0-48.0); HEMOGLOBIN. 13.5 g/dL (12.0-16.0); MEAN PLATELET VOLUME 9.8 fl (7.4-10.4); PLATELET 196 x1000/uL (130-400); RED BLOOD CELL COUNT 4.53 mill/uL (4.2-5.4); RED CELL DISTRIBUTION WIDTH 15.1 % (11.6-14.6)
[2025-06-25 20:00] LABS: TROPONIN I HIGH SENSITIVITY < 4 ng/L (3.0-34)
[2025-06-25 20:01] LABS: HCG SCREEN NEGATIVE
[2025-06-25 23:22] LABS: TROPONIN I HIGH SENSITIVITY < 4 ng/L (3.0-34)
[2025-06-25 23:47] LABS: EOSINOPHILS % MANUAL 3.0 % (0.0-5.0); LYMPHOCYTES % MANUAL 16.0 % (20.0-60.0); MONOCYTES % MANUAL 11.0 % (2.0-8.0); NEUTROPHILS % MANUAL 70.0 % (45.0-75.0); PLATELET ESTIMATE NORMAL
[2025-06-26] MEDS: SODIUM CHLORIDE 0.9% 1,000 ML IV ONE (00:58)
[2025-06-26] MEDS: KETOROLAC 15MG/ML VIAL IV NR (00:58)
[2025-06-26] MEDS: ONDANSETRON HCL 4MG/2ML INJ IV NR (00:58)
[2025-06-26] MEDS ORDERED: GUAIFENESIN 200MG/10ML SUGAR FREE UDC PO PRN (03:30)
[2025-06-26] MEDS ORDERED: IPRATROPIUM/ALBUTEROL 0.5-3(2.5)MG/3ML NEB HHN PRN (03:30)
[2025-06-26] MEDS ORDERED: ACETAMINOPHEN 325MG TABLET PO PRN (03:30)
[2025-06-26] MEDS ORDERED: MAGNESIUM/ALUMINUM HYDROXIDE/SIMETHICONE 30ML UDC PO PRN (03:30)
[2025-06-26] MEDS ORDERED: DOCUSATE SODIUM 100MG CAPSULE PO PRN (03:30)
[2025-06-26] MEDS ORDERED: CEFTRIAXONE 1GM/50ML 50 ML IV SCH ×2 (04:00)
[2025-06-26] MEDS ORDERED: HYDRALAZINE 20MG/ML VIAL IV PRN (04:00)
[2025-06-26] MEDS: SODIUM CHLORIDE 0.9% 1,000 ML IV SCH (04:09)
[2025-06-26 04:22] VITALS: BP 150/83; PULSE 78; RESP 18; TEMP 36.3624
[2025-06-26] MEDS: CEFTRIAXONE 1GM/50ML 50 ML IV SCH (04:47)
[2025-06-26] MEDS ORDERED: IOHEXOL-300 100 ML BOTTLE ONE (07:12)
[2025-06-26] MEDS: ENOXAPARIN 30MG/0.3ML SYR SUBCUT SCH (08:14)
[2025-06-26] MEDS: PANTOPRAZOLE SODIUM 40 MG/VIAL IV SCH (08:14)
[2025-06-26] MEDS: KETOROLAC 15MG/ML VIAL IV PRN (08:33)
[2025-06-26 11:24] LABS: CLARITY URINE CLEAR (CLEAR); COLOR URINE YELLOW (YELLOW); GLUCOSE URINE NEGATIVE (NEGATIVE); KETONES URINE NEGATIVE (NEGATIVE); LEUKOCYTE ESTERASE URINE NEGATIVE (NEGATIVE); NITRITE URINE NEGATIVE (NEGATIVE); OCCULT BLOOD URINE 3+ (NEGATIVE); PH URINE 6.0 (4.5-8.0); PROTEIN URINE 3+ (NEGATIVE); SPECIFIC GRAVITY URINE 1.064 (1.005-1.030); UROBILINOGEN URINE 0.2 E.U./dL (0.2-1.0)
[2025-06-26 11:38] LABS: *AMPHETAMINES SCREEN URINE NEGATIVE (NEGATIVE); *BENZODIAZEPINES SCREEN URINE NEGATIVE (NEGATIVE)
[2025-06-26 11:39] LABS: *BARBITURATES SCREEN URINE NEGATIVE (NEGATIVE); *COCAINE SCREEN URINE NEGATIVE (NEGATIVE); CANNABINOID URINE SCREEN NEGATIVE (NEGATIVE); ECSTASY MDMA SCREEN URINE NEGATIVE (NEGATIVE); METHADONE URINE SCREEN NEGATIVE (NEGATIVE); OPIATES URINE SCREEN NEGATIVE (NEGATIVE); PHENCYCLIDINE URINE SCREEN NEGATIVE (NEGATIVE)
[2025-06-26 12:53] LABS: SQUAMOUS EPITHELIAL CELL URINE FEW /lpf (RARE/1+)
[2025-06-26 12:54] LABS: BACTERIA URINE NONE SEEN; WBC URINE NONE SEEN /hpf (0-2)
[2025-06-26 13:30] LABS: PHOSPHORUS 3.0 mg/dL (2.5-4.9)
[2025-06-26] MEDS: DEXT 5%/0.9% NACL 1,000 ML IV SCH (15:49)
[2025-06-26 16:00] VITALS: BP 179/76; PULSE 83; RESP 20; TEMP 36.7; O2SAT 99
[2025-06-26] MEDS: HYDRALAZINE 10 MG in SODIUM CHLORIDE 0.9% 49.5 ML IV PRN (17:59)
[2025-06-26 20:00] VITALS: BP 136/68; PULSE 87; RESP 18; TEMP 36.8; O2SAT 98
[2025-06-26] MEDS: MAGNESIUM 2 G PREMIX 50 ML IV SCH (20:44)
[2025-06-27] VITALS: BP 127/71; PULSE 78; RESP 18; TEMP 36.7; O2SAT 96
[2025-06-27 04:00] VITALS: BP 143/70; PULSE 80; RESP 18; TEMP 36.9; O2SAT 96
[2025-06-27] MEDS: ACETAMINOPHEN 325MG TABLET PO PRN (06:34)
[2025-06-27 07:05] LABS: BASOPHILS % 0.6 % (0.0-2.0); EOSINOPHILS % 2.0 % (0.0-5.0); HEMATOCRIT. 36.3 % (36.0-48.0); HEMOGLOBIN. 11.6 g/dL (12.0-16.0); LYMPHOCYTES % 20.5 % (20.0-50.0); MEAN PLATELET VOLUME 10.5 fl (7.4-10.4); MONOCYTES % 10.8 % (2.0-8.0); NEUTROPHILS % 66.1 % (40.0-76.0); PLATELET 161 x1000/uL (130-400); RED BLOOD CELL COUNT 3.80 mill/uL (4.2-5.4); RED CELL DISTRIBUTION WIDTH 15.6 % (11.6-14.6)
[2025-06-27 07:25] LABS: CREATININE 0.9 mg/dL (0.6-1.0); UREA NITROGEN BLOOD 10 mg/dL (9-23)
[2025-06-27 08:00] VITALS: BP 168/81; PULSE 74; RESP 17; TEMP 37; O2SAT 98
[2025-06-27] MEDS: CLONIDINE 0.1MG TABLET PO PRN (10:59)
[2025-06-27 12:00] VITALS: BP 159/92; PULSE 72; RESP 18; TEMP 36.7; O2SAT 98
[2025-06-27 14:46] VITALS: BP 135/85; PULSE 72; RESP 18; TEMP 98
[2025-06-27 16:00] VITALS: BP 166/102; PULSE 74; RESP 18; TEMP 36.1; O2SAT 98
[2025-06-27] MEDS ORDERED: ESOM20CA49 MT (17:00)
== END 2025-06-27 18:20 | disposition home or self-care (01) | DRG 395 ==
LOC: ER 18:05 → 6EST 06-26 04:16
PROVIDERS: ADMIT Internal Medicine; ATTEND Internal Medicine
DX: K43.0 Incisional hernia with obstruction, without gangrene (principal); D25.9 Leiomyoma of uterus, unspecified; I10 Essential (primary) hypertension; J45.909 Unspecified asthma, uncomplicated; E66.812 Obesity, class 2; K52.9 Noninfective gastroenteritis and colitis, unspecified; Z68.37 Body mass index [BMI] 37.0-37.9, adult; Z79.899 Other long term (current) drug therapy; Z88.0 Allergy status to penicillin; Z88.1 Allergy status to other antibiotic agents; Z88.2 Allergy status to sulfonamides; Z88.3 Allergy status to other anti-infective agents; Z88.8 Allergy status to other drugs, medicaments and biological substances
CPT/HCPCS: 36415; 74018; 74177; 80048; 80076; 80305; 81003; 83605; 83735; 84100; 84145; 84484; 84703; 85025; 93005; 99285; J0360; J0696; J1650; J1885; J2405; J2470; J3475; J7030; J7042; Q9967

== ENCOUNTER → 2025-07-13 | Outpatient (CLI) | payer BC ==
[~2025-07-13] MED LIST changes: +ESOM20CA49 MT; -P50 MT; -TRIA15CR61 TP
== END | disposition home or self-care (01) ==
LOC: US 09:48
PROVIDERS: ATTEND Obstetrics & Gynecology Obstetrics
DX: D25.9 Leiomyoma of uterus, unspecified (principal); N84.0 Polyp of corpus uteri; N83.291 Other ovarian cyst, right side
CPT/HCPCS: 76830; 76856